=== PATIENT | female | born 1965 | race Caucasian/White ===

== ENCOUNTER 2022-07-10 13:49 | Observation (INO) | payer OTHER, SELFPAY ==
[2022-07-10] VITALS (14 sets, daily range): BP systolic 100–130; BP diastolic 74–104; PULSE 65–87; RESP 16; TEMP 35.6–36.7; O2SAT 90–99; BMI 35.7
--- NOTE | 2022-07-10 14:05 | CRLHL7_ITS ---
For Patients: As a result of the Century Cures Act, medical imaging exams and procedure reports are released immediately into your electronic medical record. You may view this report before your referring provider. If you have questions, please contact your health care provider. Indication: Injury and pain. Technique: Left ankle 2 views. Comparison: None. Findings: Mildly displaced fracture of the medial malleolus. Mildly displaced fracture of the posterior tibial malleolus. Moderately displaced fracture of the lateral malleolus the syndesmotic joint. There is soft tissue swelling. Unable to evaluate for widening of the ankle mortise on these limited two views. Impression: Left ankle trimalleolar fracture. Dictated by Casimiro Paredes MD @ 07/10/2022 3:01:40 PM (Electronically Signed)
[2022-07-10] MEDS: HYDROmorphone 0.5 mg/0.5 ml inj IVP ×3 (14:11→20:48)
--- NOTE | 2022-07-10 14:31 | ED_ITS ---
HPI - General Adult General Chief complaint: Extremity Pain/Injury, Lower Stated complaint: Left Ankle injury Time Seen by Provider: 07/10/22 14:05 Source: patient Mode of arrival: EMS Limitations: no limitations History of Present Illness HPI narrative: 56-year-old female coming in today after slipping on the ice and falling. Patient states that ?my ankle is broken.? She is complaining of left ankle pain. Denies any other injury. However, patient tells me that a week ago yesterday she fell and tore some tendons in the right foot. She tells me that she was told that she needed to be nonweightbearing but she has not been following that because she has needed to get around, she states that she babies the right foot quite a bit secondary to discomfort. Related Data Home Medications Medication Instructions Recorded Confirmed amitriptyline 50 mg tablet mg 07/10/22 bupropion HCl 150 mg tablet,12 hr mg PO 07/10/22 sustained-release conjugated estrogens 0.45 mg mg 07/10/22 tablet (Premarin) ipratropium 20 mcg-albuterol 100 inhalation 07/10/22 mcg/actuation mist for inhalation (Combivent Respimat) oxycodone 5 mg tablet mg 07/10/22 pantoprazole 40 mg tablet,delayed mg PO 07/10/22 release trazodone 100 mg tablet mg 07/10/22 Allergies Allergy/AdvReac Type Severity Reaction Status Date / Time prochlorperazine AdvReac Intermediate Agitated Verified 07/10/22 14:09 [From Compazine] bandaid Allergy Severe Anaphylaxis Uncoded 07/10/22 14:09 Review of Systems Status of ROS: Reports: 6 or more systems reviewed and unremarkable except as noted in History and below [facility] Social History Smoking Status: Heavy tobacco smoker What tobacco products do you use: cigarettes Years smoked: 20 Do you use any of these nicotine containing products: None Second hand tobacco smoke exposure: No How often do you have a drink containing alcohol: never AUDIT-C Alcohol total score: 0 Non-prescribed substance use: marijuana (any form) Exam Narrative: Exam Narrative: Well-nourished well-developed patient yelling in pain. Alert and oriented x3. Patient speaks loudly in full sentences without needing to catch her breath. HEENT: Normocephalic atraumatic. Pupils are equally round reactive to light. Extraocular muscles are intact. Conjunctivae are moist without any icterus noted. Moist mucous membranes. Neck is supple. She has no tenderness to palpation of the cervical spine.. Cardiovascular: Regular rate and rhythm without any murmurs. Lungs: Clear to auscultation bilaterally no wheezes rhonchi or rales are appr eciated. Extremities: Swelling of the left lower extremity. Normal DP and PT pulses. Patient has ecchymosis medially and swelling circumferentially around the ankle. She has small area of swelling over the right lateral foot. Normal DP and PT pulses. Skin: Well perfused without any obvious rashes. Const: Vital Signs, click to edit/add: Vital Signs - 24 hr 07/10/22 13:58 Temperature 96.0 F L Pulse Rate [Pulse Oximeter] 68 Respiratory Rate 16 Blood Pressure [Le ft Upper Arm] 130/96 H Pulse Oximetry 99 Oxygen Delivery Me thod Room Air Course Course Hospital Course: Patient received IV Dilaudid as well as Ativan which significantly helped her pain as well as her anxiety. X-ray read by me, showing a trimalleolar fracture. Orthopedics was consulted. They recommended outpatient surgery for this secondary to the amount of swelling present. Unfortunately patient is unable to ambulate given the pain she has on the right foot. She tells me that she feels very uncomfortable and unsafe going home at this time. I did speak to Dr. Ford will accept the patient for admission. Sugar-tong splint was placed in the ER. Florence was placed. Vital Signs Vital signs: Initial Vital Signs Temperature 96.0 F L 07/10/22 13:58 Temperature Source Temporal Artery Scan 07/10/22 13:58 Pulse Rate 68 07/10/22 13:58 Respiratory Rate 16 07/10/22 13:58 Blood Pressure 130/96 H 07/10/22 13:58 Blood Pressure Mean 107 07/10/22 13:58 Blood Pressure Position Supine 07/10/22 13:58 Pulse Oximetry 99 07/10/22 13:58 Oxygen Delivery Method 07/10/22 13:58 Vital Signs Temperature 96.0 F L 07/10/22 13:58 Pulse Rate 68 07/10/22 13:58 Respiratory Rate 16 07/10/22 13:58 Blood Pressure 130/96 H 07/10/22 13:58 Pulse Oximetry 99 07/10/22 13:58 Oxygen Delivery Method 07/10/22 13:58 Temperature 96.0 F L 07/10/22 13:58 Pulse Rate 68 07/10/22 13:58 Respiratory Rate 16 07/10/22 13:58 Blood Pressure 130/96 H 07/10/22 13:58 Pulse Oximetry 99 07/10/22 13:58 Oxygen Delivery Method 07/10/22 13:58 Medical Decision Making MDM Narrative Medical decision making narrative: 56-year-old female trimalleolar fracture. Unable to go home secondary to inability to ambulate and take care of herself. Patient will be admitted for further management. Imaging Data Ankle x-ray: Attestation: I have reviewed the pertinent imaging results. Radiologist's impression: Left ankle 2 views. Comparison: None. Findings: Mildly displaced fracture of the medial malleolus. Mildly displaced fracture of the posterior tibial malleolus. Moderately displaced fracture of the lateral malleolus the syndesmotic joint. There is soft tissue swelling. Unable to evaluate for widening of the ankle mortise on these limited two views. Impression: Left ankle trimalleolar fracture. Discharge Plan Discharge Clinical Impression: Closed trimalleolar fracture Patient Disposition: Admitted As Inpatient Condition: Stable Prescriptions: No Action bupropion HCl 150 mg tablet sustained-release 12 hr PO Label Comments: TAKE ONE TABLET BY MOUTH TWO TIMES A DAY amitriptyline 50 mg tablet Label Comments: TAKE 1 TABLET (50 MG) BY MOUTH AT BEDTIME. trazodone 100 mg tablet Label Comments: TAKE 2 TABLETS BY MOUTH AT BEDTIME pantoprazole 40 mg tablet,delayed release (DR/EC) PO Label Comments: TAKE 1 TABLET (40 MG) BY MOUTH ONCE DAILY BEFORE A MEAL. oxycodone 5 mg tablet Label Comments: TAKE ONE TABLET BY MOUTH EVERY 6 HOURS NEEDED FOR PAIN Premarin 0.45 mg tablet Label Comments: TAKE ONE TABLET BY MOUTH ONCE DAILY Combivent Respimat 20-100 mcg/actuation mist INHALATION Label Comments: INHALE 1 PUFF BY MOUTH EVERY 12 HOURS IF NEEDED FOR SHORTNESS OF BREATH. Follow Up/Referrals: Silva Alberto MD [Primary Care Provider] -
[2022-07-10] MEDS: LORazepam 2 MG/ML inj 0.5 MG IVP (15:11)
[2022-07-10 16:22] LABS: SARS PCR* Negative SARS-CoV-2 (Negative)
--- NOTE | 2022-07-10 17:40 | PM.IMHP1 ---
Hospitalist- H&P: HPI History of Present Illness Date Seen: 07/11/22 Chief complaint: Left Ankle injury Narrative: ADMISSION HISTORY AND PHYSICAL - HOSPITALIST Chief Complaint: A sprained my right ankle 2 weeks ago and now I fell hurt my left ankle HPI: 56-year-old Anne was walking 2 weeks ago when she tripped and sprained her right ankle. He went to the ED in [place]. She was diagnosed with a dorsal talus avulsion fracture from a high ankle sprain. He was given a postop shoe and Cristian wrap and told to limit her weight-bearing, ice and elevate. She found herself today needing to drive so she took her shoe off was attempting to going down a couple of stairs and she missed the step and rolled her left ankle. Knew immediately that this 1 was more injured than the right. She called for EMS. In the ER she was diagnosed with a left ankle fracture. Nondisplaced. Closed. Her pain was significant. Is unable to weightbear with a known sprain on her right. Hospital medicine team was asked to evaluate and admit for pain control and ambulation assessment with OT and PT. ER COURSE: She was given fentanyl in the transport, she received Dilaudid here. Plain films revealed Mildly displaced fracture of the medial malleolus. Mildly displaced fracture of the posterior tibial malleolus. Moderately displaced fracture of the lateral malleolus the syndesmotic joint. There is soft tissue swelling. Unable to evaluate for widening of the ankle mortise on these limited two views. Impression: Left ankle trimalleolar fracture CODE STATUS: FULL EMERGENCY CONTACT PLAN: Aamir, , . I've updated the PFSH, medications and allergies in the Expanse tabs. INVESTIGATIONS: LABS/MICRO/ECG/IMAGING Findings: Bones: Small calcification identified along the dorsal aspect of talus likely small avulsion fracture.. Joint spaces: Unremarkable. Ankle mortise is symmetric. Soft tissues: Soft tissue swelling surrounding the ankle joint., Especially along the anterior margin. Impression: Dorsal talus fracture REVIEW OF SYSTEMS: 12-point ROS completed with patient and negative unless otherwise stated in HPI or below. PHYSICAL EXAM: CONSTITUTIONAL: Conversive, good historian. A/O. Knows setting and context. VITAL SIGNS: see record. No concerns HEENT: Normocephalic, atraumatic. PERRL, EOMI, conjunctivae pink, no scleral icterus. Ears and nose externally normal. Pharynx normal. NECK: No JVD. No carotid bruit, no thyromegaly, no adenopathy. CHEST: Clear to auscultation bilaterally HEART: S1 and S2 normal. No harsh murmurs. Edema MUSCULOSKELETAL: Left ankle wrapped in splint, toes are warm and move freely. right ankle is without swelling, tender medially. NEURO: Cranial nerves intact. Grossly intact. No asymmetric findings. SKIN: No rashes, petechiae, concerning changes PSYCHIATRIC: Euthymic. ADMIT TO MEDSURG: FLOOR CARE DVT: Lovenox GI: PO intake Time spent: 70 minutes examining patient, conferring with family and patient, care staff, developing care plan [facility] Medical History (Updated 07/10/22 @ 19:57 by Usha Ford MD) Asthma Depression with anxiety GERD (gastroesophageal reflux disease) Hot flashes due to menopause Insomnia Liver cyst Malignant melanoma Migraine headache Nephrolithiasis Psoriatic arthritis Tobacco dependence Surgical History (Updated 07/10/22 @ 19:54 by Usha Ford MD) H/O lithotripsy H/O melanoma excision History of hysterectomy for benign disease History of laparoscopic cholecystectomy History of lymph node dissection of axilla Status post Fanny fundoplication Social History (Updated 07/10/22 @ 19:56 by Usha Ford MD) Narrative: Lives in [facility]. She has 2 grown children. , aamir. 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 Smokes cigarettes about a 3rd of a pack a day. No drinking. No drug use. Highest level of school completed/degree received: high school graduate Smoking Status: Current every day smoker What tobacco products do you use: cigarettes Years smoked: 20 Do you use any of these nicotine containing products: None Second hand tobacco smoke exposure: No How often do you have a drink containing alcohol: never AUDIT-C Alcohol total score: 0 Non-prescribed substance use: marijuana (any form) Caffeine: Yes service: No Meds Home Medications and Allergies Home Medications Medication Instructions Recorded Confirmed Type amitriptyline 50 mg tablet 50 mg PO HS 07/10/22 07/10/22 History betamethasone dipropionate 0.05 % 1 applic topical DAILY PRN 07/10/22 07/10/22 History lotion bupropion HCl 150 mg tablet,12 hr 150 mg PO BID 07/10/22 07/10/22 History sustained-release cholecalciferol (vitamin D3) 50 50 mcg PO DAILY 07/10/22 07/10/22 History mcg (2,000 unit) capsule conjugated estrogens 0.45 mg 0.45 mg PO HS 07/10/22 07/10/22 History tablet (Premarin) epinephrine 0.3 mg/0.3 mL 0.3 mg IM PRN PRN 07/10/22 07/10/22 History injection, auto-injector fluticasone propionate 50 1 spray intranasal BID 07/10/22 07/10/22 History mcg/actuation nasal spray,suspension ipratropium 20 mcg-albuterol 100 1 puff inhalation BID PRN 07/10/22 07/10/22 History mcg/actuation mist for inhalation (Combivent Respimat) metronidazole 0.75 % topical cream 1 applic topical DAILY PRN 07/10/22 07/10/22 History ondansetron 4 mg disintegrating 4 mg PO Q8H PRN 07/10/22 07/10/22 History tablet oxycodone 5 mg tablet 5 mg PO Q6H PRN 07/10/22 07/10/22 History pantoprazole 40 mg tablet,delayed 40 mg PO DAILY 07/10/22 07/10/22 History release sulfacetamide sodium-sulfur 8 %-4 1 applic topical DAILY 07/10/22 07/10/22 History % topical suspension trazodone 100 mg tablet 200 mg PO HS 07/10/22 07/10/22 History triamcinolone acetonide 0.1 % 1 applic topical BID PRN 07/10/22 07/10/22 History topical cream Allergies Allergy/AdvReac Type Severity Reaction Status Date / Time prochlorperazine AdvReac Intermediate Agitated Verified 07/10/22 14:09 [From Compazine] bandaid Allergy Severe Anaphylaxis Uncoded 07/10/22 14:09 Exam Const: Vital Signs, click to edit/add: Vital Signs - 24 hr 07/10/22 13:58 07/10/22 15:15 07/10/22 15:16 Temperature 96.0 F L Pulse Rate 65 79 Pulse Rate [Pulse Oximeter] 68 Pulse Rate [Right Pulse Oximeter] Respiratory Rate 16 Blood Pressure 130/85 Blood Pressure [Le ft Arm] Blood Pressure [Le ft Upper Arm] 130/96 H Pulse Oximetry 99 99 97 [facility] Room Air 07/10/22 15:33 07/10/22 15:35 07/10/22 15:45 Temperature Pulse Rate 71 75 73 Pulse Rate [Pulse Oximeter] Pulse Rate [Right Pulse Oximeter] Respiratory Rate Blood Pressure 117/76 Blood Pressure [Le ft Arm] Blood Pressure [Le ft Upper Arm] Pulse Oximetry 90 97 96 Oxygen Delivery Me od 07/10/22 16:00 07/10/22 16:02 07/10/22 16:15 Temperature Pulse Rate 71 75 86 Pulse Rate [Pulse Oximeter] Pulse Rate [Right Pulse Oximeter] Respiratory Rate Blood Pressure 121/104 H Blood Pressure [Le ft Arm] Blood Pressure [Le ft Upper Arm] Pulse Oximetry 99 96 [facility] 07/10/22 16:30 07/10/22 16:32 07/10/22 16:43 Temperature 98.1 F Pulse Rate 71 77 Pulse Rate [Pulse Oximeter] Pulse Rate [Right Pulse Oximeter] 87 Respiratory Rate 16 Blood Pressure 108/75 Blood Pressure [Le ft Arm] 117/81 Blood Pressure [Le ft Upper Arm] Pulse Oximetry 91 99 96 [facility] 07/10/22 16:43 Temperature Pulse Rate Pulse Rate [Pulse Oximeter] Pulse Rate [Right Pulse Oximeter] Respiratory Rate 16 Blood Pressure Blood Pressure [Le ft Arm] Blood Pressure [Le ft Upper Arm] Pulse Oximetry 96 [facility]xygen [facility] Assessment and Plan Assessment and plan (1) Closed trimalleolar fracture: Problem comment: Nonweightbearing. Ortho will consult 07/11. Surgery will likely be about a week out. Status: Acute (2) High ankle sprain of right lower extremity: Problem comment: Can weightbear as tolerated but needs to be in a boot with pain managed. In order to keep the left lower extremity nonweightbearing. Status: Acute (3) Mobility impaired: Problem comment: Given the right ankle injury 2 weeks ago and now the left ankle injury she will need walker/wheelchair in order to be mobile. Status: Acute (4) Tobacco dependence: Status: Acute (5) Migraine headache: Problem comment: Elavil nightly. Zofran p.r.n.. Previous Topamax dosing and triptans were ineffective. Status: Acute (6) GERD (gastroesophageal reflux disease): Problem comment: PPI Status: Acute (7) Insomnia: Status: Acute (8) Psoriatic arthritis: Problem comment: Chronic pain, no longer works. Not on social security disability. Not typically on narcotics. Status: Acute (9) Depression with anxiety: Problem comment: Wellbutrin Status: Acute
[2022-07-10] MEDS: OXYCODONE 5 MG TABLET PO (18:07)
[2022-07-10] MEDS: IBUPROFEN 400 MG TABLET PO (18:07)
[2022-07-10] MEDS: ONDANSETRON ODT 4 MG TAB PO (18:17)
--- NOTE | 2022-07-10 19:27 | PC.NURSE ---
up to floor at 1635, accompanied by spouse. Pt. is pleasant and cooperative. Alert and oriented x4. Pt. IV in right AC SL. right arm restricted. Pt.'s left ankle has a sugar tong splint, is non-weight bearing, ice 15min and 45min off. Elevated on pillows. pt. rated pain 7/10, PRN dilauded and oxy administered with some relief. PRN zofran administered for small amount of nausea. Pt. tolerating a reg. diet. Ortho will consult tomorrow morning.
[2022-07-10] MEDS: LORazepam 1 MG TABLET PO (19:40)
[2022-07-10] MEDS: ACETAMINOPHEN 325 MG TABLET PO (19:40)
[2022-07-10] MEDS: ENOXAPARIN 40 MG/0.4 ML INJ SUBCUT (20:47)
[2022-07-10] MEDS: buPROPion HCL SR 150 MG TAB PO (20:47)
[2022-07-10] MEDS: SODIUM CHLORIDE 0.9 % (FLUSH) 10 ML SYRINGE 5 ML IVF (20:48)
[2022-07-10] MEDS: TRAZODONE HCL 50 MG TABLET PO (20:48)
[2022-07-10] MEDS: MELATONIN 3 MG TABLET PO (20:49)
[2022-07-10] MEDS: FLUTICASONE PROPIONATE NASAL 1 SPRAY NOSTRIL-B (21:32)
[2022-07-10] MEDS: AMITRIPTYLINE 25 MG TABLET 50 MG PO (21:32)
[2022-07-11] VITALS (7 sets, daily range): BP systolic 96–122; BP diastolic 64–95; PULSE 73–89; RESP 16; TEMP 36.4–36.7; O2SAT 93–97
[2022-07-11] MEDS: OXYCODONE 5 MG TABLET PO ×3 (00:12→15:21)
[2022-07-11] MEDS: LORazepam 1 MG TABLET PO ×2 (00:13→20:10)
[2022-07-11] MEDS: ACETAMINOPHEN 325 MG TABLET PO ×2 (01:25→20:09)
[2022-07-11] MEDS: HYDROmorphone 0.5 mg/0.5 ml inj IVP ×6 (01:25→20:11)
[2022-07-11] MEDS: SODIUM CHLORIDE 0.9 % (FLUSH) 10 ML SYRINGE 5 ML IVF ×4 (01:25→20:12)
[2022-07-11] MEDS: OMEPRAZOLE 20 MG CAPSULE DR 40 MG PO (06:04)
--- NOTE | 2022-07-11 06:40 | PC.NURSE ---
: pt pleasant and cooperative. C/o pain -03/09, see emar. Pt states she struggles with sleep at home and takes 20mg melatonin a night along with either smoking marijuana or ?cooking? with marijuana, she gets ?the stuff from [place]?. Pt was restless at and continued to state that she ?just wants to sleep? and that she wants ?everything?. Prior to administering 0.5mg dilaudid pt requested Morphine, typewriter assembler stated that we can assess pain after medication was given, pt was able to fall asleep shortly after admin. Pt slept on and off throughout the night. Pt expressed anxiety r/t ortho consult and stated ?they can't send me home if I can't walk, I live in a split-level home?, typewriter assembler informed pt that there will be a safe d/c plan in place before d/c.?Ice to left ankle on and off throughout the shift, pt stated that the ice is offering some pain relief.
[2022-07-11 07:27] LABS: Chloride* 105 mmol/L (96-114)
[2022-07-11 07:28] LABS: Hematocrit 33.9 % (33.0-51.0); Hemoglobin* 11.1 gm/dL (12.0-16.0); Mean Corpuscular HGB Conc 33 gm/dL (32-36); Mean Corpuscular Hemoglobin 32 pg (26-34); Mean Corpuscular Volume 96 fL (80-100); Platelet Count* 381 K/uL (140-440); Potassium* 3.6 mmol/L (3.6-5.1); Red Blood Count 3.52 m/uL (4.00-5.20); Sodium* 137 mmol/L (135-149); White Blood Count* 5.91 K/uL (4.50-11.00)
[2022-07-11 07:30] LABS: Carbon Dioxide* 29 mmol/L (20-32); Creatinine* 0.7 mg/dL (0.5-1.5); Est. Creatinine Clearance* 70.98; Estimated Glomerular Filt Rate 101 ml/min
[2022-07-11 07:31] LABS: Blood Urea Nitrogen* 11 mg/dL (7-30); Calcium* 8.3 mg/dL (8.4-10.6); Glucose* 85 mg/dL (60-115)
[2022-07-11 07:33] LABS: Slide Review Reflex No
[2022-07-11] MEDS: IBUPROFEN 400 MG TABLET PO ×3 (08:40→17:50)
[2022-07-11] MEDS: FLUTICASONE PROPIONATE NASAL 1 SPRAY NOSTRIL-B ×2 (08:41→20:12)
[2022-07-11] MEDS: buPROPion HCL SR 150 MG TAB PO ×2 (08:41→20:13)
--- NOTE | 2022-07-11 09:33 | P.ORCN_ITS ---
History of Present Illness HPI Time Seen by Provider: 09:10 Date Seen: 07/11/22 Consult date: 07/11/22 Requesting physician: Miguel Howard Consult reason: fracture Chief complaint: Left Ankle injury Narrative: Anne is a pleasant 56 year-old female who fell and injured her left ankle yesterday resulting in a trimalleolar ankle fracture. Patient was placed in a short leg splint and admitted to [facility]. Today, she is resting comfortably in her bed and c/o diffuse left ankle pain that is well managed with scheduled narcotic medications, elevation and ice. Overall, she states her pain has improved from yesterday. Admits to trouble sleeping. Splint was not removed during our visit this morning. Patient also has a recent history of right ankle dorsal talus avulsion fracture and high ankle sprain (DOI: 2 weeks ago, [facility]). She was instructed to remain non-weightbearing on her right ankle x 6 weeks, however prior to this injury yesterday, Anne admits she struggles more with utilizing crutches than with weightbearing on her right foot/ankle. No right ankle swelling nor ecchymosis. Review of Systems Narrative: Admits: left ankle swelling, ecchymosis and trouble sleeping. Denies: chest pain, SOB, fever chills, right ankle swelling and ecchymosis. [facility] Medical History Asthma Depression with anxiety GERD (gastroesophageal reflux disease) Hot flashes due to menopause Insomnia Liver cyst Malignant melanoma Migraine headache Nephrolithiasis Psoriatic arthritis Tobacco dependence Surgical History H/O lithotripsy H/O melanoma excision History of hysterectomy for benign disease History of laparoscopic cholecystectomy History of lymph node dissection of axilla Status post Fanny fundoplication Social History Narrative: Lives in [facility]. She has 2 grown children. , aamir. 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 Since retired, medically secondary to chronic pain. Smokes cigarettes about a 3rd of a pack a day. No drinking. No drug use. Highest level of school completed/degree received: high school graduate Smoking Status: Current every day smoker What tobacco products do you use: cigarettes Years smoked: 20 Do you use any of these nicotine containing products: None Second hand tobacco smoke exposure: No How often do you have a drink containing alcohol: never AUDIT-C Alcohol total score: 0 Non-prescribed substance use: marijuana (any form) Caffeine: Yes service: No Meds Home Medications and Allergies Home Medications Medication Instructions Recorded Confirmed Type amitriptyline 50 mg tablet 50 mg PO HS 07/10/22 07/10/22 History betamethasone dipropionate 0.05 % 1 applic topical DAILY PRN 07/10/22 07/10/22 History lotion bupropion HCl 150 mg tablet,12 hr 150 mg PO BID 07/10/22 07/10/22 History sustained-release cholecalciferol (vitamin D3) 50 50 mcg PO DAILY 07/10/22 07/10/22 History mcg (2,000 unit) capsule conjugated estrogens 0.45 mg 0.45 mg PO HS 07/10/22 07/10/22 History tablet (Premarin) epinephrine 0.3 mg/0.3 mL 0.3 mg IM PRN PRN 07/10/22 07/10/22 History injection, auto-injector fluticasone propionate 50 1 spray intranasal BID 07/10/22 07/10/22 History mcg/actuation nasal spray,suspension ipratropium 20 mcg-albuterol 100 1 puff inhalation BID PRN 07/10/22 07/10/22 History mcg/actuation mist for inhalation (Combivent Respimat) metronidazole 0.75 % topical cream 1 applic topical DAILY PRN 07/10/22 07/10/22 History ondansetron 4 mg disintegrating 4 mg PO Q8H PRN 07/10/22 07/10/22 History tablet oxycodone 5 mg tablet 5 mg PO Q6H PRN 07/10/22 07/10/22 History pantoprazole 40 mg tablet,delayed 40 mg PO DAILY 07/10/22 07/10/22 History release sulfacetamide sodium-sulfur 8 %-4 1 applic topical DAILY 07/10/22 07/10/22 History % topical suspension trazodone 100 mg tablet 200 mg PO HS 07/10/22 07/10/22 History triamcinolone acetonide 0.1 % 1 applic topical BID PRN 07/10/22 07/10/22 History topical cream Allergies Allergy/AdvReac Type Severity Reaction Status Date / Time prochlorperazine AdvReac Intermediate Agitated Verified 07/10/22 14:09 [From Compazine] bandaid Allergy Severe Anaphylaxis Uncoded 07/10/22 14:09 Ortho Exam Narrative Exam Narrative: EXAMINATION: Patient is alert and oriented x3. No acute distress and converses with non- labored breathing. Presents in short leg splint that was not removed for this visit, therefore exam is limited. Left ankle exam: Swelling present in digits. Able to wiggle toes appropriately. ROM and strength testing obviously deferred. Unable to assess DP and PT pulses, but pink, warm digits with brisk capillary refill. Sensation present in digits. Const Vital Signs, click to edit/add: Vital Signs - 24 hr 07/10/22 13:58 07/10/22 15:15 07/10/22 15:16 Temperature 96.0 F L Pulse Rate 65 79 Pulse Rate [Pulse Oximeter] 68 Pulse Rate [Right Pulse Oximeter] Respiratory Rate 16 Blood Pressure 130/85 Blood Pressure [Left Arm] Blood Pressure [Left Upper Arm] 130/96 H Pulse Oximetry 99 99 97 Oxygen Delivery Method Room Air Room Air 07/10/22 15:33 07/10/22 15:35 07/10/22 15:45 Temperature Pulse Rate 71 75 73 Pulse Rate [Pulse Oximeter] Pulse Rate [Right Pulse Oximeter] Respiratory Rate Blood Pressure 117/76 Blood Pressure [Left Arm] Blood Pressure [Left Upper Arm] Pulse Oximetry 90 97 96 Oxygen Delivery Method 07/10/22 16:00 07/10/22 16:02 07/10/22 16:15 Temperature Pulse Rate 71 75 86 Pulse Rate [Pulse Oximeter] Pulse Rate [Right Pulse Oximeter] Respiratory Rate Blood Pressure 121/104 H Blood Pressure [Left Arm] Blood Pressure [Left Upper Arm] Pulse Oximetry 99 96 Oxygen Delivery Method 07/10/22 16:30 07/10/22 16:32 07/10/22 16:43 Temperature 98.1 F Pulse Rate 71 77 Pulse Rate [Pulse Oximeter] Pulse Rate [Right Pulse Oximeter] 87 Respiratory Rate 16 Blood Pressure 108/75 Blood Pressure [Left Arm] 117/81 Blood Pressure [Left Upper Arm] Pulse Oximetry 91 99 96 Oxygen Delivery Method Room Air 07/10/22 16:43 07/10/22 19:00 07/10/22 21:38 Temperature Pulse Rate Pulse Rate [Pulse Oximeter] Pulse Rate [Right Pulse Oximeter] 75 Respiratory Rate 16 16 Blood Pressure Blood Pressure [Left Arm] 100/74 Blood Pressure [Left Upper Arm] Pulse Oximetry 96 99 94 Oxygen Delivery Method Room Air Room Air 07/10/22 21:38 07/10/22 21:38 07/11/22 03:00 Temperature 97.8 F 97.6 F Pulse Rate Pulse Rate [Pulse Oximeter] Pulse Rate [Right Pulse Oximeter] 66 66 73 Respiratory Rate 16 16 16 Blood Pressure Blood Pressure [Left Arm] 100/80 107/70 Blood Pressure [Left Upper Arm] Pulse Oximetry 94 94 Oxygen Delivery Method Room Air Room Air Results Labs Labs: Laboratory Results - last 48 hr 07/10/22 07/11/22 07/11/22 15:35 06:22 06:22 WBC 5.91 RBC 3.52 L Hgb 11.1 L Hct 33.9 MCV 96 MCH 32 MCHC 33 Plt Count 381 Sodium 137 Potassium 3.6 Chloride 105 Carbon Dioxide 29 BUN 11 Creatinine 0.7 Estimated Creat Clear 70.98 Estimated GFR 101 Glucose 85 Calcium 8.3 L TSH SARS-CoV-2 (PCR) Negative SARS-CoV-2 07/11/22 06:22 WBC RBC Hgb Hct MCV MCH MCHC Plt Count Sodium Potassium Chloride Carbon Dioxide BUN Creatinine Estimated Creat Clear Estimated GFR Glucose Calcium TSH 2.740 SARS-CoV-2 (PCR) Diagnostic results Ankle/Foot x-ray: image reviewed (2-view left ankle images were reviewed from [place] [facility] dated 07/10/22. These show: an acute, minimally displaced trimalleolar fracture. ) Assessment and Plan Assessment and plan (1) Closed trimalleolar fracture: Problem comment: DOI: 07/10/22 Status: Acute Assessment and Plan: - Images were reviewed with Anne. We discussed her trimalleolar ankle fracture and syndesmosis injury. - Outpatient surgical intervention is recommended approximately 7-10 days from DOI to allow swelling reduction. Surgery would be: left ankle ORIF with IM nail and cannulated screws and also syndesmosis repair. - PT and OT consults today. Following these consults, the Hospitalist may decide if Anne is capable to discharge to home later today or if a short-term rehab stay is necessary. - Patient will follow-up with Dr. Higgins next week. - In the meantime, she will remain non-weightbearing left lower extremity. - For pain management, recommend rest, ice, elevation, acetaminophen and oxycodone PRN. I stressed the importance of elevation over the next week. - Phone Orthopedics with any questions or concerns. Total time spent: Total time spent is greater than 50% in coordination of care (as documented) at patient's floor/unit and/or counseling patient: (2) High ankle sprain of right lower extremity: Problem comment: 2 weeks s/p right dorsal talus avulsion fracture with a high ankle sprain. Status: Acute Assessment and Plan: - Patient may gradually advance weightbearing status on her right lower extremity as tolerated. Recommend a CAM boot and a walker to assist with stability. Total time spent: Total time spent is greater than 50% in coordination of care (as documented) at patient's floor/unit and/or counseling patient: (3) Mobility impaired: Status: Acute Total time spent: Total time spent is greater than 50% in coordination of care (as documented) at patient's floor/unit and/or counseling patient: (4) Tobacco dependence: Status: Acute Total time spent: Total time spent is greater than 50% in coordination of care (as documented) at patient's floor/unit and/or counseling patient: (5) Migraine headache: Status: Acute Total time spent: Total time spent is greater than 50% in coordination of care (as documented) at patient's floor/unit and/or counseling patient: (6) GERD (gastroesophageal reflux disease): Status: Acute Total time spent: Total time spent is greater than 50% in coordination of care (as documented) at patient's floor/unit and/or counseling patient: (7) Insomnia: Status: Acute Total time spent: Total time spent is greater than 50% in coordination of care (as documented) at patient's floor/unit and/or counseling patient: (8) Psoriatic arthritis: Status: Acute Total time spent: Total time spent is greater than 50% in coordination of care (as documented) at patient's floor/unit and/or counseling patient: (9) Depression with anxiety: Status: Acute Total time spent: Total time spent is greater than 50% in coordination of care (as documented) at patient's floor/unit and/or counseling patient:
--- NOTE | 2022-07-11 12:40 | PM.IMPN1 ---
Progress Note: A&P Assessment and plan (1) Closed trimalleolar fracture: Problem details: DOI: 07/10/22 Status: Acute Assessment and Plan: left ankle (2) Mobility impaired: Status: Acute (3) High ankle sprain of right lower extremity: Problem details: 2 weeks s/p right dorsal talus avulsion fracture with a high ankle sprain. Status: Acute (4) Depression with anxiety: Status: Acute (5) GERD (gastroesophageal reflux disease): Problem details: PPI Status: Acute Plan Plan Surgery next week; PT/OT evaluation possible DC tomorrow home if able to ambulate or will need snf referral with plan for readmission for surgical intervention Ortho Recs Outpatient surgical intervention is recommended approximately 7-10 days from DOI to allow swelling reduction. Surgery would be: left ankle ORIF with IM nail and cannulated screws and also syndesmosis repair. - PT and OT consults today. - Patient will follow-up with Dr. Higgins next week. - In the meantime, she will remain non-weightbearing left lower extremity. Subjective Date Seen: 07/11/22 Interval history: patient evaluated by orthopaedic team unable to get surgery till next week Given boot Patient does not feel she can dc today; unable to ambulate; no help at home today; but tomorrow her will be able to help her Exam Narrative: Exam Narrative: Gen: no acute distress HEENT: NCAT EOMI mmm CV: RRR normal s1 s2 Lungs: CTAB Abd: Soft,nt, nd Neuro: Alert, oriented, CN grossly intact; nonfocal screening?exam Psych: appropriate affect MSK: age appropriate muscle mass; left lower extremity splinted in case Skin; Warm, dry no rash on face : [place] in place Const: Vital Signs, click to edit/add: Vital Signs - 24 hr 07/10/22 13:58 07/10/22 15:15 07/10/22 15:16 Temperature 96.0 F L Pulse Rate 65 79 Pulse Rate [Pulse Oximeter] 68 Pulse Rate [Right Pulse Oximeter] Respiratory Rate 16 Blood Pressure 130/85 Blood Pressure [Le ft Arm] Blood Pressure [Le ft Upper Arm] 130/96 H Pulse Oximetry 99 99 97 Oxygen Delivery Me thod Room Air Room Air 07/10/22 15:33 07/10/22 15:35 07/10/22 15:45 Temperature Pulse Rate 71 75 73 Pulse Rate [Pulse Oximeter] Pulse Rate [Right Pulse Oximeter] Respiratory Rate Blood Pressure 117/76 Blood Pressure [Le ft Arm] Blood Pressure [Le ft Upper Arm] Pulse Oximetry 90 97 96 Oxygen Delivery Me thod 07/10/22 16:00 07/10/22 16:02 07/10/22 16:15 Temperature Pulse Rate 71 75 86 Pulse Rate [Pulse Oximeter] Pulse Rate [Right Pulse Oximeter] Respiratory Rate Blood Pressure 121/104 H Blood Pressure [Le ft Arm] Blood Pressure [Le ft Upper Arm] Pulse Oximetry 99 96 Oxygen Delivery Me thod 07/10/22 16:30 07/10/22 16:32 07/10/22 16:43 Temperature 98.1 F Pulse Rate 71 77 Pulse Rate [Pulse Oximeter] Pulse Rate [Right Pulse Oximeter] 87 Respiratory Rate 16 Blood Pressure 108/75 Blood Pressure [Le ft Arm] 117/81 Blood Pressure [Le ft Upper Arm] Pulse Oximetry 91 99 96 Oxygen Delivery [facility] Room Air 07/10/22 16:43 07/10/22 19:00 07/10/22 21:38 Temperature Pulse Rate Pulse Rate [Pulse Oximeter] Pulse Rate [Right Pulse Oximeter] 75 Respiratory Rate 16 16 Blood Pressure Blood Pressure [Le ft Arm] 100/74 Blood Pressure [Le ft Upper Arm] Pulse Oximetry 96 99 94 Oxygen Delivery [facility] Room Air Room Air 07/10/22 21:38 07/10/22 21:38 07/11/22 03:00 Temperature 97.8 F 97.6 F Pulse Rate Pulse Rate [Pulse Oximeter] Pulse Rate [Right Pulse Oximeter] 66 66 73 Respiratory Rate 16 16 16 Blood Pressure Blood Pressure [Le ft Arm] 100/80 107/70 Blood Pressure [Le ft Upper Arm] Pulse Oximetry 94 94 Oxygen Delivery Me od Room Air Room Air 07/11/22 07:00 07/11/22 07:00 07/11/22 07:00 Temperature 98.0 F Pulse Rate Pulse Rate [Pulse Oximeter] Pulse Rate [Right Pulse Oximeter] 84 84 Respiratory Rate 16 16 Blood Pressure Blood Pressure [Le ft Arm] 98/72 Blood Pressure [Le ft Upper Arm] Pulse Oximetry 95 95 [facility] 07/11/22 11:00 Temperature 98.1 F Pulse Rate Pulse Rate [Pulse Oximeter] Pulse Rate [Right Pulse Oximeter] 76 Respiratory Rate 16 Blood Pressure Blood Pressure [Le ft Arm] 96/64 Blood Pressure [Le ft Upper Arm] Pulse Oximetry 94 Oxygen Delivery Me thod Room Air Labs Labs: Laboratory Results - last 24 hr 07/10/22 07/11/22 07/11/22 15:35 06:22 06:22 WBC 5.91 RBC 3.52 L Hgb 11.1 L Hct 33.9 MCV 96 MCH 32 MCHC 33 Plt Count 381 Sodium 137 Potassium 3.6 Chloride 105 Carbon Dioxide 29 BUN 11 Creatinine 0.7 Estimated Creat Clear 70.98 Estimated GFR 101 Glucose 85 Calcium 8.3 L TSH SARS-CoV-2 (PCR) Negative SARS-CoV-2 07/11/22 06:22 WBC RBC Hgb Hct MCV MCH MCHC Plt Count Sodium Potassium Chloride Carbon Dioxide BUN Creatinine Estimated Creat Clear Estimated GFR Glucose Calcium TSH 2.740 SARS-CoV-2 (PCR)
--- NOTE | 2022-07-11 19:42 | PC.NURSE ---
End of shift: Pt. is pleasant and cooperative. Alert and oriented x4. Pt. IV in left wrist, SL. right arm restricted. Pt.'s left ankle has a sugar tong splint, is non-weight bearing, ice 15min and 45min off. Elevated on pillows. pt. rated pain 7/10, PRN dilauded and oxy administered with some relief. Pt. denies Nausea. Pt. tolerating a reg. diet. Plan is to do surgery in a week from day of ankle fracture.
[2022-07-11] MEDS: DOCUSATE SODIUM 100 MG CAPSULE PO (20:09)
[2022-07-11] MEDS: TRAZODONE HCL 50 MG TABLET PO (20:10)
[2022-07-11] MEDS: AMITRIPTYLINE 25 MG TABLET 50 MG PO (20:10)
[2022-07-11] MEDS: MELATONIN 3 MG TABLET PO (20:10)
[2022-07-11] MEDS: ENOXAPARIN 40 MG/0.4 ML INJ SUBCUT (20:12)
[2022-07-12] MEDS: OXYCODONE 5 MG TABLET PO ×5 (00:12→19:11)
[2022-07-12] MEDS: HYDROmorphone 0.5 mg/0.5 ml inj IVP ×2 (01:14→08:33)
[2022-07-12 03:00] VITALS: RESP 16
[2022-07-12] MEDS: ACETAMINOPHEN 325 MG TABLET PO ×3 (04:26→21:43)
[2022-07-12] MEDS: OMEPRAZOLE 20 MG CAPSULE DR 40 MG PO (06:13)
--- NOTE | 2022-07-12 06:28 | PC.NURSE ---
-: pleasant and cooperative. Rates pain 4-6/10 in her left ankle, see eMAR. Informed patient that paint mgmt should be with oral medication and to limit IV dilaudid with potential d/c 07/12. VSS. Pt able to sleep much of the night. Ice on and off left ankle throughout shift. LLE elevated.
[2022-07-12 07:00] VITALS: BP 102/84; PULSE 65; RESP 16; TEMP 36.7; O2SAT 96
[2022-07-12 07:09] LABS: Chloride* 107 mmol/L (96-114); Sodium* 140 mmol/L (135-149)
[2022-07-12 07:10] LABS: Potassium* 3.5 mmol/L (3.6-5.1)
[2022-07-12 07:12] LABS: Carbon Dioxide* 30 mmol/L (20-32); Creatinine* 0.7 mg/dL (0.5-1.5); Est. Creatinine Clearance* 70.98; Estimated Glomerular Filt Rate 101 ml/min
[2022-07-12 07:13] LABS: Basophils Percent Auto 0.5 % (0.0-3.0); Blood Urea Nitrogen* 11 mg/dL (7-30); Calcium* 8.1 mg/dL (8.4-10.6); Eosinophils Percent Auto 6.2 % (0.0-7.0); Glucose* 86 mg/dL (60-115); Hematocrit 33.2 % (33.0-51.0); Hemoglobin* 10.7 gm/dL (12.0-16.0); Lymphocytes Percent Auto 40.5 % (20-44); Mean Corpuscular HGB Conc 32 gm/dL (32-36); Mean Corpuscular Hemoglobin 31 pg (26-34); Mean Corpuscular Volume 96 fL (80-100); Monocytes Percent Auto 10.9 % (0.0-11.0); Neutrophils Percent Auto 41.9 % (42.0-72.0); Platelet Count* 364 K/uL (140-440); RDW Coefficient of Variation % 13.1 % (11.5-15.5); Red Blood Count 3.45 m/uL (4.00-5.20); White Blood Count* 4.22 K/uL (4.50-11.00)
[2022-07-12 07:56] LABS: Slide Review Reflex No
[2022-07-12] MEDS: IBUPROFEN 400 MG TABLET PO (08:33)
[2022-07-12] MEDS: buPROPion HCL SR 150 MG TAB PO ×2 (08:34→21:09)
[2022-07-12] MEDS: FLUTICASONE PROPIONATE NASAL 1 SPRAY NOSTRIL-B ×2 (08:34→21:09)
[2022-07-12] MEDS: SODIUM CHLORIDE 0.9 % (FLUSH) 10 ML SYRINGE 5 ML IVF ×2 (08:34→21:49)
[2022-07-12] MEDS: DOCUSATE SODIUM 100 MG CAPSULE PO ×2 (10:20→21:48)
[2022-07-12 11:00] VITALS: BP 113/82; PULSE 77; RESP 16; TEMP 36.7; O2SAT 96
[2022-07-12] MEDS: diphenhydrAMINE 25 MG CAPSULE PO (11:16)
[2022-07-12] MEDS: KETOROLAC 10 MG TABLET PO ×2 (11:16→21:44)
[2022-07-12] MEDS: ONDANSETRON ODT 4 MG TAB PO (11:18)
--- NOTE | 2022-07-12 11:22 | P.IMPN_ITS ---
Progress Note: A&P Assessment and plan (1) Closed trimalleolar fracture: Problem details: DOI: 07/10/22 Status: Acute Assessment and Plan: Plan Surgery next week; PT/OT evaluation anticipate she will need snf referral with plan for readmission for surgical intervention Ortho Recs Outpatient surgical intervention is recommended approximately 7-10 days from DOI to allow swelling reduction. Surgery would be: left ankle ORIF with IM nail and cannulated screws and also syndesmosis repair. - PT and OT consults today. - Patient will follow-up with Dr. Higgins next week. - In the meantime, she will remain non-weightbearing left lower extremity. (2) Mobility impaired: Status: Acute (3) High ankle sprain of right lower extremity: Problem details: 2 weeks s/p right dorsal talus avulsion fracture with a high ankle sprain. Status: Acute (4) Depression with anxiety: Status: Acute (5) Migraine headache: Status: Acute Assessment and Plan: tylenol (6) GERD (gastroesophageal reflux disease): Problem details: PPI Status: Acute Plan Plan for today: DC IV narcotics; DC jensen catheter, Increase PO oxycodone frequency, add flexeril; continue therapy evaluation; SW/CM consult tomorrow for possible short term rehab; patient has brother and at home. Brother able to assist with ADLs. Patient has been fairly immobile while in hospital; working on getting her out of bed. Subjective Date Seen: 07/12/22 Interval history: patient with minimal ambulation still requiring PO and IV narcotics continues to have difficulty with ambulation does not think she can discharge today Exam Narrative: Exam Narrative: Gen: no acute distress HEENT: NCAT EOMI mmm CV: RRR normal s1 s2 Lungs: CTAB Abd: Soft,nt, nd Neuro: Alert, oriented, CN grossly intact; nonfocal screening?exam Psych: appropriate affect MSK: age appropriate muscle mass; left lower extremity in cast; FROm right ankle Skin; Warm, dry no rash on face Const: Vital Signs, click to edit/add: Vital Signs - 24 hr 07/11/22 15:00 07/11/22 15:00 07/11/22 15:00 Temperature 98.0 F Pulse Rate [Right Pulse Oximeter] 89 89 Respiratory Rate 16 16 Blood Pressure [Le ft Arm] 111/95 H Pulse Oximetry 94 97 Oxygen Delivery Me thod Room Air 07/11/22 19:00 07/11/22 22:24 07/11/22 22:24 Temperature 98.0 F Pulse Rate [Right Pulse Oximeter] 88 88 Respiratory Rate 16 16 Blood Pressure [Le ft Arm] 122/79 Pulse Oximetry 95 95 Oxygen Delivery Me thod Room Air 07/11/22 23:00 07/12/22 03:00 Temperature Pulse Rate [Right Pulse Oximeter] 75 Respiratory Rate 16 16 Blood Pressure [Le ft Arm] 99/71 Pulse Oximetry 93 Oxygen Delivery Me thod Room Air Labs Labs: Laboratory Results - last 24 hr 07/12/22 07/12/22 06:06 06:06 WBC 4.22 L RBC 3.45 L Hgb 10.7 L Hct 33.2 MCV 96 MCH 31 MCHC 32 RDW Coeff of Kathryn 13.1 Plt Count 364 Neut % (Auto) 41.9 L Lymph % (Auto) 40.5 [facility] [facility] % (Auto) 10.9 Eos % (Auto) 6.2 Baso % (Auto) 0.5 Neut # (Auto) 1.80 Lymph # (Auto) 1.70 [facility] # (Auto) 0.50 Eos # (Auto) 0.30 Baso # (Auto) 0.00 Sodium 140 Potassium 3.5 L Chloride 107 Carbon Dioxide 30 BUN 11 Creatinine 0.7 Estimated Creat Clear 70.98 Estimated GFR 101 Glucose 86 Calcium 8.1 L
[2022-07-12] MEDS: CYCLOBENZAPRINE HCL 10 MG TABLET PO (13:40)
[2022-07-12 15:00] VITALS: BP 113/60; PULSE 83; RESP 16; TEMP 36.6; O2SAT 94
[2022-07-12 19:00] VITALS: BP 123/96; PULSE 88; RESP 16; TEMP 36.8; O2SAT 96
[2022-07-12] MEDS: LORazepam 1 MG TABLET PO (19:11)
[2022-07-12] MEDS: ENOXAPARIN 40 MG/0.4 ML INJ SUBCUT (21:07)
[2022-07-12] MEDS: AMITRIPTYLINE 25 MG TABLET 50 MG PO (21:08)
[2022-07-12] MEDS: TRAZODONE HCL 50 MG TABLET PO (21:08)
[2022-07-12] MEDS: MELATONIN 3 MG TABLET PO (21:44)
--- NOTE | 2022-07-12 22:13 | PC.NURSE ---
Shift note:Pt is doing well with A1 to bedside commode. Pain have been between 5 and 9. Tolerated regular diet very well without N/V.
[2022-07-12 22:57] VITALS: O2SAT 96
[2022-07-13] MEDS: OXYCODONE 5 MG TABLET PO ×3 (00:43→11:50)
[2022-07-13] MEDS: CYCLOBENZAPRINE HCL 10 MG TABLET PO (00:43)
[2022-07-13 00:53] VITALS: BP 133/73; PULSE 91; RESP 16; TEMP 36.7; O2SAT 96
[2022-07-13 00:54] VITALS: PULSE 91; RESP 16
[2022-07-13 06:00] VITALS: BP 122/73; PULSE 86; RESP 18; TEMP 36.6; O2SAT 96
[2022-07-13] MEDS: OMEPRAZOLE 20 MG CAPSULE DR 40 MG PO (06:17)
[2022-07-13 07:00] VITALS: BP 122/76; PULSE 74; RESP 18; TEMP 36.6; O2SAT 96
[2022-07-13] MEDS: ACETAMINOPHEN 325 MG TABLET PO (07:27)
[2022-07-13] MEDS: SODIUM CHLORIDE 0.9 % (FLUSH) 10 ML SYRINGE 5 ML IVF (09:31)
[2022-07-13] MEDS: buPROPion HCL SR 150 MG TAB PO (09:31)
[2022-07-13] MEDS: FLUTICASONE PROPIONATE NASAL 1 SPRAY NOSTRIL-B (09:31)
--- NOTE | 2022-07-13 11:35 | P.DS_ITS ---
DS: Providers Provider Date Seen: 07/13/22 Date of admission: 07/10/22 16:31 Primary care physician: Silva Alberto MD Admitting Clinician: Usha Ford MD Consults: PT, OT, and Orthopedic Surgery Attending Physician on discharge: Usha Ford MD Date of Discharge: 07/13/22 DS: Diagnosis Discharge Diagnosis (1) Closed trimalleolar fracture: Status: Acute Problem details: - DOI: 07/10/22 (LEFT) - Splint placed in ED on admission, seen by Ortho with plan for surgical inter vention next week (2) Mobility impaired: Status: Acute (3) High ankle sprain of right lower extremity: Status: Acute Problem details: - 2 weeks s/p right dorsal talus avulsion fracture with a high ankle sprain. (4) Depression with anxiety: Status: Acute Problem details: - stable, continued home medications during stay (5) GERD (gastroesophageal reflux disease): Status: Acute Problem details: - stable, on PPI (6) Postmenopausal: Status: Acute Problem details: - on HRT; will hold on discharge given nonambulatory status and upcoming surgery DS: Summary Hospital Course Hospital Course: Anne is a very pleasant 56-year-old female who was admitted to the hospital after a fall on ice 07/10/22. She unfortunately was noted to have a left trimalleolar fracture; also recently sustained a high right ankle sprain and has been using a cam walker on the right. Given her nonambulatory status, she was minute to the hospital for therapy and pain control. ' She was seen by Orthopedic surgery, PT, and OT. She will have surgical intervention next week with our our Orthopedic Surgery team locally. Comorbidities remained stable (see above) and patient did not require additional medical management throughout stay. Prior to discharge, SNF stay offered; patient declined and will be discharging home with and brother on 07/13. Status at Discharge Functional status at discharge: wheelchair bound Time Spent with Patient Time attestation: Total time spent providing and/or coordinating discharge services: Time spent: Greater than 30 minutes Specific discharge activities: Multidisciplinary care coordination prior to discharge, medication management Exam Narrative: Exam Narrative: Patient is sitting comfortably in bedside chair, nontoxic in appearance Pulse palpates as regular rate and rhythm She is breathing comfortably without tachypnea or audible wheezing She is wearing a cam walker on her right lower extremity, splint on her left lower extremity She is able to move her left toes and has normal capillary refill Const: Vital Signs, click to edit/add: Vital Signs - 24 hr 07/12/22 15:00 07/12/22 15:00 07/12/22 19:00 Temperature 97.9 F 98.3 F Pulse Rate [Right Pulse Oximeter] 83 88 Respiratory Rate 16 16 Blood Pressure [Le ft Arm] 113/60 123/96 H Pulse Oximetry 94 94 96 Oxygen Delivery Me thod Room Air Room Air 07/12/22 22:57 07/13/22 00:53 07/13/22 00:54 Temperature 98.1 F Pulse Rate [Right Pulse Oximeter] 91 91 Respiratory Rate 16 16 Blood Pressure [Le ft Arm] 133/73 Pulse Oximetry 96 96 Oxygen Delivery Me thod Room Air 07/13/22 06:00 07/13/22 07:00 07/13/22 07:00 Temperature 98 F Pulse Rate [Right Pulse Oximeter] 86 74 Respiratory Rate 18 18 Blood Pressure [Le ft Arm] 122/73 Pulse Oximetry 96 96 Oxygen Delivery Me thod Room Air 07/13/22 07:00 Temperature 98 F Pulse Rate [Right Pulse Oximeter] 74 Respiratory Rate 18 Blood Pressure [Le ft Arm] 122/76 Pulse Oximetry 96 Oxygen Delivery Me thod Room Air Discharge Plan Discharge Disposition: Home, Self-Care Date of Admission: 07/10/22 16:31 Consulting Providers: Cecilia Regan Primary Care Provider: Silva Alberto Condition: Stable Anticipated Discharge Date/Time: 07/13/22 15:00 Discharge Medications: New cyclobenzaprine 10 mg Tablet 10 mg PO TID PRNQty: 30 0RF Rx Instructions: as needed (muscle relaxer) docusate sodium 100 mg Capsule 100 mg PO BID PRN (Reason: Constipation) Qty: 60 0RF Rx Instructions: take while you're on Oxycodone to minimize risk of constipation oxycodone 5 mg Tablet 5 mg PO Q4H PRNQty: 20 0RF hydroxyzine pamoate [Vistaril] 25 mg capsule 25 mg PO Q6-8H PRNQty: 30 0RF Rx Instructions: 1-2 capsules Q6H prn pain acetaminophen [Tylenol Extra Strength] 500 mg tablet 1,000 mg PO Q8H Qty: 90 0RF Continued bupropion HCl 150 mg tablet sustained-release 12 hr 150 mg PO BID Label Comments: TAKE ONE TABLET BY MOUTH TWO TIMES A DAY amitriptyline 50 mg tablet 50 mg PO HS Label Comments: TAKE 1 TABLET (50 MG) BY MOUTH AT BEDTIME. trazodone 100 mg tablet 200 mg PO HS Label Comments: TAKE 2 TABLETS BY MOUTH AT BEDTIME pantoprazole 40 mg tablet,delayed release (DR/EC) 40 mg PO DAILY Label Comments: TAKE 1 TABLET (40 MG) BY MOUTH ONCE DAILY BEFORE A MEAL. Combivent Respimat 20-100 mcg/actuation mist 1 puff INHALATION BID PRN Label Comments: INHALE 1 PUFF BY MOUTH EVERY 12 HOURS IF NEEDED FOR SHORTNESS OF BREATH. fluticasone propionate 50 mcg/actuation spray,suspension 1 spray INTRANASAL BID Label Comments: USE 1 SPRAY TO BOTH NOSTRILS TWO TIMES A DAY sulfacetamide sodium-sulfur 8-4 % suspension 1 applic TOPICAL DAILY Label Comments: WASH FACE ONCE DAILY triamcinolone acetonide 0.1 % cream 1 applic TOPICAL BID PRN Label Comments: APPLY TO THE AFFECTED AREA TWO TIMES A DAY ondansetron 4 mg tablet,disintegrating 4 mg PO Q8H PRN Label Comments: PLACE 1 TABLET ON THE TONGUE EVERY 8 HOURS IF NEEDED FOR NAUSEA/VOMITING. epinephrine 0.3 mg/0.3 mL auto-injector 0.3 mg IM PRN PRN Label Comments: INJECT 0.3MG (0.3ML) INTRAMUSCULARLY NEEDED FOR ALLERGIC REACTION cholecalciferol (vitamin D3) 50 mcg (2,000 unit) capsule 50 mcg PO DAILY betamethasone dipropionate 0.05 % lotion 1 applic TOPICAL DAILY PRN Label Comments: APPLY TO SCALP DAILY FOR APPLY TO 2 WEEKS AT A TIME REPEAT NEEDED FOR FLARES metronidazole 0.75 % cream 1 applic TOPICAL DAILY PRN Label Comments: APPLY TO AFFECTED AREA ON FACE ONCE DAILY Held Premarin 0.45 mg tablet 0.45 mg PO HS Hold Instructions: Resume on 08/31/22. Hold Premarin until 6 weeks postop from ankle surgery (can talk with Dr. Milan about restarting sooner, but it increases the risk of blood clots with your injury and surgery). Label Comments: TAKE ONE TABLET BY MOUTH ONCE DAILY Discontinued oxycodone 5 mg tablet 5 mg PO Q6H PRN Label Comments: TAKE ONE TABLET BY MOUTH EVERY 6 HOURS NEEDED FOR PAIN Discharge Orders: Discharge Order (Routine); Ordered 07/13/22 Ordered By: Lizeth Manjarrez Patient Education: Acetaminophen (By mouth), Cyclobenzaprine (By mouth), Laxative, Stool Softeners (By mouth), Hydroxyzine (By mouth), Oxycodone, Rapid Release (By mouth), ORIF (DC) Additional Instructions: Pain management: SCHEDULE Tylenol 1000mg every 8 hours NEEDED: Oxycodone (every 4 hours), Cyclobenzaprine (muscle relaxer every 8 hours), Vistaril (augmenting pain medication every 6-8 hours) HOLD your Premarin (can increase risk of blood clots with your injury and upcoming surgery) - restart this 6 weeks postop (or per Dr. Milan) Activity Level: No Weight Bearing Discharge Diet: Regular Follow Up Appointments: Silva Alberto MD [Primary Care Provider] - (call and make an appt to see Dr. Alberto 1-2 weeks after surgery - see Ortho as scheduled) [facility] Info Instructions
--- NOTE | 2022-07-13 12:27 | PC.NURSE ---
Discharge: Pt. is pleasant and cooperative. Alert and oriented x4. Pt. IV in left wrist removed intact. Pt.'s left ankle has a sugar tong splint. pt. rated pain 7/10, PRN oxy administered with some relief. Pt. denies Nausea. Pt. tolerating a reg. diet. Plan is to do surgery in a week from day of ankle fracture. Discharged today at 1200 via wheelchair accompanied by spouse to home. Pt. verbalized understanding of discharge instructions and signed form.
== END 2022-07-13 12:00 | disposition home or self-care (01) ==
LOC: ED 16:23 → MEDSURG 16:32
PROVIDERS: Hospitalist; Admitting Provider Family Medicine; Emergency Provider Family Medicine; PCP Family Medicine; Visit Provider Family Medicine
DX: S82.855A Nondisplaced trimalleolar fracture of left lower leg, initial encounter for closed fracture (principal); S93.491A Sprain of other ligament of right ankle, initial encounter; S92.151A Displaced avulsion fracture (chip fracture) of right talus, initial encounter for closed fracture; Z74.09 Other reduced mobility; F41.8 Other specified anxiety disorders; Z78.0 Asymptomatic menopausal state; K21.9 Gastro-esophageal reflux disease without esophagitis; F17.200 Nicotine dependence, unspecified, uncomplicated; G43.909 Migraine, unspecified, not intractable, without status migrainosus; G47.00 Insomnia, unspecified; L40.50 Arthropathic psoriasis, unspecified; W19.XXXA Unspecified fall, initial encounter; Y93.29 Activity, other involving ice and snow; R26.2 Difficulty in walking, not elsewhere classified; S90.02XA Contusion of left ankle, initial encounter; M25.572 Pain in left ankle and joints of left foot; M79.671 Pain in right foot; Z98.890 Other specified postprocedural states; Z90.49 Acquired absence of other specified parts of digestive tract; Z90.710 Acquired absence of both cervix and uterus; Z85.820 Personal history of malignant melanoma of skin; G89.29 Other chronic pain; F12.90 Cannabis use, unspecified, uncomplicated; M25.472 Effusion, left ankle; Z96.0 Presence of urogenital implants
CPT/HCPCS: 29515; 36415; 73610; 80048; 84443; 85025; 85027; 87635; 94761; 96372; 96374; 96375; 96376; 97110; 97161; 97165; 97530; 97535; 99284; 99285; A9270; G0378; J1170; J1650; J2060; S0106

== ENCOUNTER 2022-07-15 15:11 | Outpatient (CLI) | payer OTHER, SELFPAY ==
[2022-07-15 17:10] LABS: Potassium* 4.5 mmol/L (3.6-5.1)
== END 2022-07-15 15:12 | disposition home or self-care (01) ==
PROVIDERS: PCP Family Medicine; Visit Provider Family Medicine
DX: E87.6 Hypokalemia (principal)
CPT/HCPCS: 84132

== ENCOUNTER 2022-07-16 11:17 | Day surgery (SDC) | payer OTHER, SELFPAY ==
[2022-07-16] VITALS (16 sets, daily range): BP systolic 100–128; BP diastolic 65–87; PULSE 68–85; RESP 12–16; TEMP 35.8–37.1; O2SAT 91–97; BMI 267.6
[2022-07-16] MEDS: LACTATED RINGERS 1000 ML 1,000 ML 100 ML IV ×2 (12:05→14:10)
[2022-07-16] MEDS: fentaNYL 100 MCG/2 ML inj IVP (13:10)
[2022-07-16] MEDS: MIDAZOLAM HCL 1 MG/ML inj IVP (13:10)
[2022-07-16] MEDS: CEFAZOLIN 2 GM in 0.9 % SODIUM CHLORIDE Mini-bag 100 ML IVPB (13:35)
--- NOTE | 2022-07-16 14:15 | CRLHL7_ITS ---
For Patients: As a result of the Century Cures Act, medical imaging exams and procedure reports are released immediately into your electronic medical record. You may view this report before your referring provider. If you have questions, please contact your health care provider. Indication: INTRAOP ORIF OF LT ANKLE Technique: Four fluoroscopic images of the left ankle. Fluoroscopic time 1 minute 17.4 seconds. IMPRESSION: Fluoroscopic guidance for open reduction internal fixation of distal tibial and distal fibular fractures. Dictated by Neftaly Hernandez MD @ 07/16/2022 3:03:34 PM (Electronically Signed)
--- NOTE | 2022-07-16 14:21 | P.NB_ITS ---
Nerve Block Nerve Block Time Seen by Provider: 13:10 Date Seen: 07/16/22 Type of block requested by surgeon for post-operative analgesia: popliteal Side: left Time out performed: Yes Verification of patient name: Yes Verification of date of : Yes Site marking: site marked Name of person performing procedure: Kareem Continuous monitoring Was continuous monitoring of O2 sat, B/P, site monitor, recorded every 15 minutes?: Yes Procedure Checklist: sterile prep, needles and gloves Ultrasound guided. Images saved: Yes Medications given in 5ml increments after negative aspiration: Ropivicaine %: 0.5 mL: 20 Needle gauge: 22 Patient tolerated procedure well: Yes Additional comments: Needle noted adjacent to nerve Block Charges Block Charge (with Pro Fee): Sciatic Nerve Use of Ultrasound Machine for Block: Yes- US Guidance/pain block
--- NOTE | 2022-07-16 14:22 | P.NB_ITS ---
Nerve Block Nerve Block Time Seen by Provider: 13:10 Date Seen: 07/16/22 Type of block requested by surgeon for post-operative analgesia: adductor canal Side: left Time out performed: Yes Verification of patient name: Yes Verification of date of : Yes Site marking: site marked Name of person performing procedure: Kareem Continuous monitoring Was continuous monitoring of O2 sat, B/P, electrical accessories i assembler, recorded every 15 minutes?: Yes Procedure Checklist: sterile prep, needles and gloves Ultrasound guided. Images saved: Yes Medications given in 5ml increments after negative aspiration: Ropivicaine %: 0.5 mL: 20 Needle gauge: 20 Patient tolerated procedure well: Yes Additional comments: Needle noted adjacent to nerve Block Charges Block Charge (with Pro Fee): Femoral Nerve Use of Ultrasound Machine for Block: Yes- US Guidance/pain block
--- NOTE | 2022-07-16 14:22 | W.ANESCHARGE ---
Anesthesia Charges Start Date/Time Anesthesia Start Date: 07/16/22 Anesthesia Start Time: 13:32 Stop Date/Time Anesthesia Stop Date: 07/16/22 Anesthesia Stop Time: 15:13
--- NOTE | 2022-07-16 14:52 | PM.ORPRC ---
Procedure Note Date of procedure: 07/16/22 Procedure: PREOPERATIVE DIAGNOSIS: Left ankle Traylor B trimalleolar fracture POSTOPERATIVE DIAGNOSIS: Left ankle Traylor B trimalleolar fracture NAME OF OPERATION: ORIF SURGEON: Matt Higgins MD DIRECTOR HEALTH: LEIDY Victoria ANESTHESIA: Spinal plus popliteal block ESTIMATED BLOOD LOSS: 0 mL COMPLICATIONS: None SPECIMENS: None DRAINS: None PREOPERATIVE ANTIBIOTICS: Ancef 2 g INDICATIONS: The patient is a 56-year-old who sustained a left ankle fracture. ORIF was recommended. The risks, benefits and expected outcomes were discussed in detail. These included but were not limited to: Infection, bleeding, injury to blood vessel or nerve, venous thromboembolism. All questions were answered to their satisfaction. Use of an hair or beauty salon assistant was necessary throughout the case for patient positioning and safety, soft tissue retraction and closure. PROCEDURE: A popliteal block was placed by anesthesia. Spinal anesthesia was administered. The lower extremity was prepped and draped in the usual sterile fashion. A percutaneous incision was placed over the anterior and posterior aspect of the fibula distally. A a pointed reduction clamp was placed on the lateral malleolus. This was used to regain length. We then placed a Traylor reduction clamp across the distal fracture fragment and across the tibia. This provided an excellent reduction of the fibula. A guide pin was placed in the center of the distal fragment of the fibula, percutaneously. Its placement was confirmed with the image intensifier in multiple views. A stab incision was made around the guide pin. The opening reamer was used. The guide pin was removed. The reduction finger was placed in the distal fragment. The distal fragment was held reduced. The reduction finger was taken across the fracture site. The longer, flexible guide pin was placed across the fracture, engaging the canal of the proximal fragment. The opening reamer was placed again, past the fracture site. The 3.2 mm Reamer was Used in the proximal fragment. We placed the Arthrex 3 mm x 130 mm Intramedullary nail. The talons were deployed. We placed 2 screws in the distal fragment. The piece goods clerk was removed, the end cap was placed. This provides an excellent reduction of the fibula. Attention then turned to the medial side. A curvilinear incision was made over the medial malleolus. Subcutaneous dissection sharply taken of the fracture site. Subperiosteal dissection was carried to expose the fracture. Only the anterior colliculus had been fractured off. Therefore, the distal fragment is quite small. A guide pin was placed in the distal fragment. The fracture was then reduced with this joystick and the guide pin was advanced across the fracture site into the proximal fragment. Its placement was confirmed with the image intensifier. The cannulated drill was used. We then placed a 4.0 mm x 40 mm cannulated screw was placed. This compressed the fracture nicely, reducing it anatomically.] Implants were imaged in the AP, mortise and lateral views and were felt to be well placed with an excellent reduction. The talus is nicely reduced under the tibial plafond. The syndesmosis was stressed and was found to be stable. The wounds were irrigated with normal saline. The hair or beauty salon assistant closed the skin with a 4-0 Monocryl in a subcuticular fashion. Glue was used to seal the skin. The hair or beauty salon assistant placed a dry dressing and short leg Jorge Curry splint. Sponge and needle counts were correct x 2. The patient tolerated the procedure well. There were no apparent complications. They were carefully transferred to the hospital bed and taken to the postanesthesia care unit in satisfactory condition. PLAN: The patient will be discharged to home. They will remain strict nonweightbearing on the lower extremity. They will continue to work on ice and elevation. They will follow up in the office in 2 weeks for a wound check and three views of the ankle out of the splint, prior to being seen, in preparation for a short-leg, nonweightbearing cast for a month.
[2022-07-16] MEDS: MEPERIDINE 25 MG/ML INJ 12.5 MG IVP (15:15)
--- NOTE | 2022-07-16 15:16 | W.ANESCHARGE ---
Anesthesia Charges Start Date/Time Anesthesia Start Date: 07/16/22 Anesthesia Start Time: 13:32 Stop Date/Time Anesthesia Stop Date: 07/16/22 Anesthesia Stop Time: 15:13
[2022-07-16] MEDS: ACETAMINOPHEN 325 MG TABLET 650 MG PO (16:37)
--- NOTE | 2022-07-16 18:47 | PC.NURSE ---
Pt alert and oriented x3. Pt reported pain 5/10, pain managed by PRN pain mediations. Pt denies chest pain, SOB, and nausea vomiting. Pt left leg dressing is CDI. Pt is non weight bearing on the left leg, pivots to commode. Pt is tolerating a regular diet. Written and verbal education was given to pt and significant other, pt and significant other verbalized understanding. Pt left via wheelchair with significant other at 1721. IV was taken out at discharge, catheter intact.
== END 2022-07-16 17:21 | disposition home or self-care (01) ==
LOC: OR 14:25 → MEDSURG 16:06
PROVIDERS: PCP Family Medicine; Visit Provider Orthopaedic Surgery
PROC: (CPT 27822; principal; 2022-07-16 14:15)
DX: S82.852A Displaced trimalleolar fracture of left lower leg, initial encounter for closed fracture (principal)
CPT/HCPCS: 27822; 01480; 64445; 64447; 73600; 76000; 76942; A4580; A9270; C1713; C1776; J0690; J1100; J2175; J2250; J2405; J2704; J2795; J3010; J7120

== ENCOUNTER 2022-08-04 08:58 | Day surgery (SDC) | payer OTHER, SELFPAY ==
[2022-08-04] VITALS (13 sets, daily range): BP systolic 90–130; BP diastolic 53–103; PULSE 15–81; RESP 15–18; TEMP 36.1–36.5; O2SAT 94–98; BMI 35.6
[2022-08-04] MEDS: LACTATED RINGERS 1000 ML 1,000 ML 100 ML IV (08:35)
[2022-08-04] MEDS: SODIUM CHLORIDE 0.9 % (FLUSH) 10 ML SYRINGE IVF (09:50)
[2022-08-04] MEDS: fentaNYL 100 MCG/2 ML inj IVP (09:57)
[2022-08-04] MEDS: MIDAZOLAM HCL 1 MG/ML inj IVP (09:57)
--- NOTE | 2022-08-04 10:05 | SUR.PREOP ---
TIME?OUT:?0956 PT/RN/MDA?VERIFICATION?OF?SURGICAL?SITE left ankle,?PROCEDURE nerve block,?AND?CONSENT OBTAINED?PRIOR?TO?INVASIVE?PROCEDURE.
--- NOTE | 2022-08-04 10:19 | W.ANESCHARGE ---
Anesthesia Charges Start Date/Time Anesthesia Start Date: 08/04/22 Anesthesia Start Time: 10:25 Stop Date/Time Anesthesia Stop Date: 08/04/22 Anesthesia Stop Time: 11:48
--- NOTE | 2022-08-04 10:20 | W.PM.NB ---
Nerve Block Nerve Block Time Seen by Provider: 10:08 Date Seen: 08/04/22 Type of block requested by surgeon for post-operative analgesia: adductor canal Side: left Time out performed: Yes Verification of patient name: Yes Verification of date of : Yes Site marking: site marked Name of person performing procedure: Kareem Continuous monitoring Was continuous monitoring of O2 sat, B/P, front desk monitor, recorded every 15 minutes?: Yes Procedure Checklist: sterile prep, needles and gloves Ultrasound guided. Images saved: Yes Medications given in 5ml increments after negative aspiration: Ropivicaine %: 0.5 mL: 20 Needle gauge: 20 Patient tolerated procedure well: Yes Additional comments: Needle noted adjacent to nerve Block Charges Block Charge (with Pro Fee): Femoral Nerve Use of Ultrasound Machine for Block: Yes- US Guidance/pain block
--- NOTE | 2022-08-04 10:21 | W.PM.NB ---
Nerve Block Nerve Block Time Seen by Provider: 10:08 Date Seen: 08/04/22 Type of block requested by surgeon for post-operative analgesia: geniculars Side: left Time out performed: Yes Verification of patient name: Yes Verification of date of : Yes Site marking: site marked Name of person performing procedure: Kareem Continuous monitoring Was continuous monitoring of O2 sat, B/P, cardiac surgeon, recorded every 15 minutes?: Yes Procedure Checklist: sterile prep, needles and gloves Medications given in 5ml increments after negative aspiration: Ropivicaine %: 0.5 mL: 9 Needle gauge: 25 Patient tolerated procedure well: Yes Block Charges Block Charge (with Pro Fee): Genicular Nerve Block Use of Ultrasound Machine for Block: No
--- NOTE | 2022-08-04 10:45 | CRLHL7_ITS ---
For Patients: As a result of the Cures Act, medical imaging exams and procedure reports are released immediately into your electronic medical record. You may view this report before your referring provider. If you have questions, please contact your health care provider. Indication: Left ankle ORIF revision Technique: Three fluoroscopic images of the left ankle. Fluoroscopic time 71.1 seconds. IMPRESSION: Fluoroscopic guidance for syndesmotic fusion. Dictated by Neftaly Hernandez MD @ 08/04/2022 12:22:56 PM (Electronically Signed)
--- NOTE | 2022-08-04 11:31 | P.ORPRC_ITS ---
Procedure Note Date of procedure: 08/04/22 Procedure: PREOPERATIVE DIAGNOSIS: Left ankle Traylor B bimalleolar fracture POSTOPERATIVE DIAGNOSIS: Left ankle Traylor B bimalleolar fracture NAME OF OPERATION: Syndesmotic fixation SURGEON: Matt Higgins MD FRONT MAN: Cecilia Regan PA-C ANESTHESIA: General plus popliteal block ESTIMATED BLOOD LOSS: 0 mL COMPLICATIONS: None SPECIMENS: None DRAINS: None PREOPERATIVE ANTIBIOTICS: Ancef 1 gram INDICATIONS: The patient is a 56-year-old who sustained a left ankle fracture. ORIF was completed a couple of weeks ago. During her follow-up it was noted that the talus was laterally translated just under 2 mm. Therefore, revision of her fixation with the addition of syndesmotic screws was recommended. The risks, benefits and expected outcomes were discussed in detail. These included but were not limited to: Infection, bleeding, injury to blood vessel or nerve, venous thromboembolism. All questions were answered to their satisfaction. Use of an assistant professor in family studies was necessary throughout the case for patient positioning and safety, soft tissue retraction and closure. PROCEDURE: A popliteal block was placed by anesthesia. General anesthesia was administered. The lower extremity was prepped and draped in the usual sterile fashion. A Traylor reduction clamp was placed on the distal fragment of the fibula. Longitudinal traction was placed on this fragment. We then placed the syndesmotic reduction clamp. A K-wire x 2 was placed across the syndesmosis, through the intramedullary nail using a freehand technique with the image intensifier in the lateral view. Their placement was confirmed in both AP and lateral views. The cannulated drill was used. We then placed a 3.5 mm by 48 mm and 3.5 mm by 52 mm syndesmotic screws. The syndesmotic clamp was removed. The image intensifier was used to confirm the screw placement. The talus is nicely reduced under the tibial plafond. Wounds were irrigated normal saline, closed with a 3-0 Monocryl and glue. The assistant professor in family studies placed a dry dressing and short leg Jorge Curry splint. Sponge and needle counts were correct x 2. The patient tolerated the procedure well. There were no apparent complications. They were carefully transferred to the hospital bed and taken to the postane sthesia care unit in satisfactory condition. PLAN: The patient will be discharged to home. They will remain strict nonweightbearing on the lower extremity. They will continue to work on ice and elevation. They will follow up in the office in 1-2 weeks for a wound check and three views of the ankle out of the splint, prior to being seen, in preparation for a short-leg nonweightbearing cast.
--- NOTE | 2022-08-04 11:55 | W.ANESCHARGE ---
Anesthesia Charges Start Date/Time Anesthesia Start Date: 08/04/22 Anesthesia Start Time: 10:25 Stop Date/Time Anesthesia Stop Date: 08/04/22 Anesthesia Stop Time: 11:48
== END 2022-08-04 13:00 | disposition home or self-care (01) ==
PROVIDERS: PCP Family Medicine; Visit Provider Orthopaedic Surgery
PROC: (CPT 27829; principal; 2022-08-04 10:45)
DX: S82.842A Displaced bimalleolar fracture of left lower leg, initial encounter for closed fracture (principal)
CPT/HCPCS: 27829; 01480; 64447; 64454; 73600; 76000; 76942; A4580; C1713; J2250; J2400; J2405; J2704; J2795; J3010; J7120

== ENCOUNTER 2022-10-05 09:45 | Outpatient (RCR) | payer OTHER, SELFPAY | END 2023-01-01 14:44 | disposition home or self-care (01) | PROVIDERS: PCP Family Medicine; Visit Provider Orthopaedic Surgery | DX: Z87.81 Personal history of (healed) traumatic fracture (principal); M25.572 Pain in left ankle and joints of left foot; R26.89 Other abnormalities of gait and mobility; Z51.89 Encounter for other specified aftercare | CPT/HCPCS: 97110; 97162 ==

== ENCOUNTER 2022-10-09 15:00 | Outpatient (CLI) | payer OTHER, SELFPAY ==
--- NOTE | 2022-10-09 15:00 | CRLHL7_ITS ---
For Patients: As a result of the Century Cures Act, medical imaging exams and procedure reports are released immediately into your electronic medical record. You may view this report before your referring provider. If you have questions, please contact your health care provider. INDICATION: Pain and swelling COMPARISON: None. TECHNIQUE: A compression venous ultrasound exam was performed of the left lower extremity using mccall-scale imaging, color Doppler and spectral Doppler analysis. FINDINGS: Sonographic imaging of the left lower extremity demonstrates normal compressibility and color Doppler venous blood flow within the common femoral vein, deep femoral vein, and the proximal greater saphenous vein. Within the thigh, the femoral vein is patent and compressible. At a lower level, the popliteal and posterior tibial veins also show normal compressibility and color Doppler venous blood flow. Limited imaging of the contralateral groin demonstrates a normal spectral waveform and color Doppler venous blood flow within the right common femoral vein. IMPRESSION: Normal venous ultrasound exam. No evidence of deep vein thrombosis within the left lower extremity. Dictated by Neftaly Hernandez MD @ 10/09/2022 3:54:56 PM (Electronically Signed)
== END 2022-10-09 15:01 | disposition home or self-care (01) ==
LOC: US 15:01
PROVIDERS: PCP Family Medicine; Visit Provider Physician Assistant
DX: M79.605 Pain in left leg (principal); Z87.81 Personal history of (healed) traumatic fracture; Z98.890 Other specified postprocedural states
CPT/HCPCS: 93971

== ENCOUNTER 2022-12-02 06:55 | Day surgery (SDC) | payer OTHER, SELFPAY ==
[2022-12-02] MEDS: LACTATED RINGERS 1000 ML 1,000 ML 100 ML IV (06:55)
[2022-12-02 07:36] VITALS: BP 118/81; PULSE 84; RESP 16; TEMP 36.9; O2SAT 96
[2022-12-02 07:37] VITALS: BMI 35.6
--- NOTE | 2022-12-02 07:45 | CRLHL7_ITS ---
For Patients: As a result of the Cures Act, medical imaging exams and procedure reports are released immediately into your electronic medical record. You may view this report before your referring provider. If you have questions, please contact your health care provider. Indication: INTRAOP REQUEST FOR SCREW REMOVAL Technique: Three fluoroscopic images of the left ankle. Fluoroscopic time 4.4 seconds. IMPRESSION: Fluoroscopic guidance for syndesmotic screw removal. Dictated by Neftaly Hernandez MD @ 12/02/2022 9:16:57 AM (Electronically Signed)
[2022-12-02] MEDS: CEFAZOLIN 2 GM INJ IVP (08:08)
--- NOTE | 2022-12-02 08:47 | P.ORPRC_ITS ---
Procedure Note Date of procedure: 12/02/22 Procedure: PREOPERATIVE DIAGNOSIS: Left ankle fracture ORIF with retained hardware POSTOPERATIVE DIAGNOSIS: Left ankle fracture ORIF with retained hardware SURGEON: Matt Higgins MD FOREIGN STUDENT ADVISER: Alberto David PA-C NAME OF OPERATION: Hardware removal deep ANESTHESIA: Local ESTIMATED BLOOD LOSS: 0 mL COMPLICATIONS: None SPECIMENS: None DRAINS: None PREOPERATIVE ANTIBIOTICS: Ancef 2 gram INDICATIONS: The patient is a 56-year-old who sustained an ankle fracture. ORIF was completed previously. They present today for elective syndesmotic screw removal. The risks, benefits and expected outcomes were discussed in detail. These included but were not limited to: Infection, bleeding, injury to blood vessel or nerve, venous thromboembolism. All questions were answered to their satisfaction. Use of an foundation assistant was necessary throughout the case for patient positioning and safety, soft tissue retraction and closure. PROCEDURE: The patient was placed supine on the operating room table. IV sedation was administered. The lower extremity was prepped and draped in the usual sterile fashion. Local anesthesia was established with several mL of a 50:50 mixture of 1% lidocaine with epinephrine, 0.5% Marcaine with epinephrine. The image intensifier was used to confirm location of the syndesmotic screws. We utilized our previously placed incision and opened it longitudinally. Subcutaneous dissection was bluntly taken to the screw heads which were fully exposed. Each screw was removed intact, without complication. The image intensifier was used to obtain an AP, mortise and lateral view of the ankle, showing the screws have been removed. The talus remains nicely reduced under the tibia. The wound was irrigated with normal saline. The foundation assistant closed soft tissue with a 3-0 Vicryl deep and a 3-0 Monocryl in a subcuticular fashion. The foundation assistant placed a soft dressing. Sponge and needle counts were correct x 2. The patient tolerated the procedure well. There were no apparent complications. They were carefully transferred to the hospital bed and taken to the postanesthesia care unit in satisfactory condition. PLAN: The patient will be discharged to home. They may weightbear as tolerates. Ice, ibuprofen and Tylenol will be used as needed for pain. They will follow up in the office in 2 weeks for a wound check.
[2022-12-02] MEDS: BUPIVACAINE 0.5% 30 ML INJECTION (08:51)
[2022-12-02 09:08] VITALS: BP 105/77; PULSE 82; RESP 16; TEMP 36.1; O2SAT 94
--- NOTE | 2022-12-02 09:12 | W.ANESCHARGE ---
Anesthesia Charges Start Date/Time Anesthesia Start Date: 12/02/22 Anesthesia Start Time: 07:58 Stop Date/Time Anesthesia Stop Date: 12/02/22 Anesthesia Stop Time: 09:09
== END 2022-12-02 09:47 | disposition home or self-care (01) ==
PROVIDERS: PCP Family Medicine; Visit Provider Orthopaedic Surgery
PROC: (CPT 20680; principal; 2022-12-02 08:15)
DX: Z47.2 Encounter for removal of internal fixation device (principal)
CPT/HCPCS: 20680; 01480; 73600; 76000; J0665; J0690; J2250; J2704; J3010; J3490; J7120

== ENCOUNTER 2024-08-02 13:03 | Emergency (ER) | payer BC, SELFPAY ==
--- OUTSIDE RECORDS SUMMARY | 2024-08-02 13:06 | XMS_ITS | Clinical Summary ---
Author Organization [facility] Address [address] [place] [id number] Care Team Providers Care Manuscript Editor Name Role Phone Silva Alberto MD Primary Care Provider [phone] Allergies Active Allergy Reactions Criticality Noted Date Comments Adhesive Anaphylaxis,Rash High 11/27/2009 Zolpidem Tartrate Other - Describe In Comment Field 07/20/2014 Sleep eating Amoxicillin Angioedema 01/16/2008 Clindamycin Anaphylaxis High 04/16/2016 Prochlorperazine Confusion 01/16/2008 Droperidol Agitation High 06/11/2009 Feels like the same rxn as compazine Medications cholecalciferol (VITAMIN D-3) 2,000 unit capsuleIndications :Vitamin D deficiency Take 1 capsule by mouth once daily. 90 capsule 3 04/25/20 18 Active betamethasone dipropionate 0.05% (DIPROSONE LOTION 0.05%) lotion Apply to scalp once daily 60 mL 1 0 4:46 PM CDT 09/07/19 20 Active vitamin e 1,000 unit cap Take by mouth once daily. 0 12/06/19 21 Active metroNIDAZOLE 0.75 % cream APPLY TO AFFECTED AREA ON FACE ONCE DAILY 09/03/19 22 Active sulfacetamide sodium-sulfur (SulfaCleanse 8-4) 8-4 % suspensionIndicati ons:Other rosacea Wash face once daily 473 mL 3 02/05/20 22 Active triamcinolone (ARISTOCORT; KENALOG) 0.1 % creamIndications:P soriasis of scalp Apply topically to affected area(s) two times daily. 28.4 g 02/05/20 Active baclofen (LIORESAL) 10 mg tabletIndications: Muscle spasm TAKE 1 TABLET (10 MG) BY MOUTH TWO TIMES DAILY. 30 Tablet 11/20/19 23 Active buPROPion (WELLBUTRIN SR) 150 mg Sustained-Release tabletIndications: Depression with anxiety Take 1 Tablet (150 mg) by mouth two times daily. 180 Tablet 3 03/22/20 Active EPINEPHrine (EpiPen) 0.3 mg/0.3 mL auto-injectorIndic ations:Allergy to adhesive Inject 0.3 mg intramuscular one time if needed for Allergic Reaction. 2 Each 03/22/20 Active ipratropium-albute roL (COMBIVENT RESPIMAT) (20-100 mcg each actuation) mist inhalerIndications :PARKER (dyspnea on exertion) Inhale 1 Puff by mouth every 12 hours if needed for Shortness Of Breath. 1 Each 03/22/20 23 Active potassium chloride (KLOR-CON M20) 20 mEq extended-release tablet (part/cryst)Indica tions:Hypokalemia Take 1 Tablet (20 mEq) by mouth once daily with a meal. 90 Tablet 03/23/20 Active traZODone (DESYREL) 100 mg tabletIndications: Insomnia, idiopathic TAKE 2 TABLETS (200 MG) BY MOUTH AT BEDTIME 180 Tablet 04/17/20 24 Active pantoprazole (PROTONIX) 40 mg delayed-release tabletIndications: Chronic GERD TAKE 1 TABLET BY MOUTH EVERY DAY BEFORE A MEAL 90 Tablet 04/15/20 24 Active fluticasone (50 mcg per actuation) nasal solution (FLONASE)Indicatio ns:Seasonal allergies INHALE 1 SPRAY INTO BOTH NOSTRILS 2 TIMES DAILY 48 mL 04/15/20 24 Active amitriptyline (ELAVIL) 50 mg tabletIndications: Irritability Take 1 Tablet (50 mg) by mouth at bedtime. 90 Tablet 3 04/17/20 24 Active estrogens conjugated (Premarin) 0.625 mg tabletIndications: Menopause Take 1 Tablet (0.625 mg) by mouth once daily. 270 Tablet 04/17/20 24 Active ondansetron (ZOFRAN ODT) 4 mg disintegrating tabletIndications: Esophageal dysphagia PLACE 1 TABLET ON THE TONGUE EVERY 8 HOURS NEEDED FOR NAUSEA AND VOMITING 30 Tablet 05/22/20 24 Active Active Problems Problem Noted Date Diagnosed Date Psoriatic arthritis 02/04/2022 Chronic GERD 04/08/2020 BMI 34.0-34.9,adult 04/28/2017 Allergy to adhesive 05/01/2015 Atypical nevi 09/22/2013 Overview (06/09/2016): 4/ midline upper back, moderately atypical compound nevus, excised 2008, left mid back, mild atypical Reminder letter sent 06/09/2016 Liver cyst 03/01/2013 Menopause 08/22/2012 Overview (08/22/2012): Hot flashes -- started 07/2012, plan short-term therapy Insomnia, unspecified 10/16/2011 Depression with anxiety 09/24/2011 Esophageal dysphagia 07/22/2011 Overview (07/26/2011): Secondary to Fanny fundoplication. Underwent EGD-mediated dilatation on 07/23/2011 with improved symptoms. Reflux esophagitis 12/10/2008 Overview (07/22/2011): S/p Fanny fundoplication in January,. Still with significant symptoms. Migraine, unspecified, witho ut mention of intractable migraine without mention of status migrainosus 11/14/2007 Overview (07/22/2011): Gets at least weekly headaches. On topamax daily along with a triptan as needed. Encounter for screening colonoscopy Resolved Problems Problem Noted Date Diagnosed Date Resolved Date Arthralgia 04/08/2020 06/12/2022 Cholecystitis 06/28/2017 08/22/2018 Chronic neck pain 12/27/2013 06/12/2022 Nausea with vomiting 07/22/2011 012 Overview (07/26/2011): Secondary to dysphagia, improved during hospitalization on 07/26/2011. Seizure 05/13/2011 07/22/2011 Panic disorder without agoraphobia 01/01/2011 07/22/2011 Chronic idiopathic urticaria 11/20/2010 07/22/2011 Atypical anxiety disorder 12/16/2009 Overview (07/22/2011): On as needed ativan Malignant melanoma of skin o f upper limb, including shoulder 06/11/2009 02/04/2022 Overview (11/24/2017): Stage 3, with curative resection in 2009. Still on leukine therapy (14 days on, 4 days off). Follows with Dr. Noyola. 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 Removing from melanoma recall. Malignant melanoma of skin o f other and unspecified parts of face 06/06/2009 11/20/2010 Hypovitaminosis D 12/11/2008 11/20/2010 Morbid obesity 12/10/2008 11/20/2010 Chest pain 12/09/2008 06/07/2009 SIGNIFICANT OBESITY BMI 39.5 12/09/2008 07/22/2011 Ovarian cystic mass 01/20/2008 06/07/19 10 Overview (01/20/2008): pelvic US showed 2.0 cm x 1.7 cm x 1.4 cm complex cystic mass on the right ovary with moderately thickened wall, likely benign. Follow up US in 6-8 weeks required to ensure involution. Headache(784.0) 01/16/2008 01/16/2008 RIGHT FLANK PAIN 01/16/2008 06/07/2009 SEVERE ESOPHAGEAL REFLUX 11/14/200712/2009 Overview (12/09/2008): Almost continuous pain over last two years. ? Candidate for Laprascopic Fanny Dysphagia 06/12/2022 Encounters Date Type Department Care Team Description 07/19/2024 Telephone [facility] [address] [place] [address] Silva Alberto MD Prior Authorization (estrogens conjugated (Premarin) 0.625 mg tablet DENIAL) 05/20/2024 Refill [facility] [address] [place] [address] Silva Alberto MD Refill Request (Ondansetron) 05/04/2024 Travel from Last 3 Months Immunizations Name Administration Dates Next Due COVID-19 VACCINE SPIKEVAX (M ODERNA 50MCG/0.5ML) 12YO+ PFS 03/22/2023 COVID-19 vaccine (Moderna 100mcg/0.5mL) PF, MDV 08/09/2020,07/12/2020 COVID-19 vaccine ([employer]-Bio NTech 30mcg/0.3mL) 12YO+ BIVALENT PF, MDV 03/12/2022 COVID-19 vaccine (Pfizer-Bio NTech 30mcg/0.3mL) 12YO+ GIULIA-SUCROSE PF, MDV 03/12/2022 Influenza Virus, Unspecified 02/11/2012,03/12/20 11,04/21/2010 Influenza, IIV3 (Age >=3 years) 03/27/20 13,02/11/2012,03/12/2011,2009,03/06/2009,04/16/2008 Influenza, IIV4 03/22/2023,,02/15/2019,2017,04/28/2017,02/19/2016,01/28/2015,0 02/26/2014,03/27/2013,02/11/2012, 011,04/21/2010 Influenza, RIV3 (Age =>18 Years) 02/26/2014 Pneumococcal Conj 20-valent (Prevnar 20) 02/04/2022 Pneumococcal Poly,23-Valent (Pneumovax) 06/12/2009 Td (Age >=7 Years) 10/28/2005 Tdap 10/04/2013 Zoster (Shingrix-RZV, recombinant) 04/14/2022, Family History Medical History Relation Name Comments Good Health Brother 2 Good Health Father Cancer Mother brain mass Cancer-breast Mother Diabetes Mother Stroke Mother Heart Disease Paternal Grandfather report s that he took nitro Heart Disease Sister 2 recent treatme nt currently monitored with telemetry Cancer Sister 3 ovarian Cancer-colon No Family History Cancer-prostate No Family History Relation Name Status Comments Brother 1 Alive Brother 2 Father Alive Mother Alive Paternal Grandfather Sister 1 Alive Sister 2 Sister 3 Social History Tobacco Use Types Packs/Day Years Used Date Smoking Tobacco: Some Days Cigarettes Last attempted to quit: 01/31/2022 Smokeless Tobacco: Never Tobacco Cessation:Ready to Q uit: Not Asked; Counseling Given: Not Answered Comments:When she's drinking Alcohol Use Standard Drinks/Week Comments Yes 0 (1 standard drink = 0.6 oz pur e alcohol) occasional PHQ-2 Answer Date Recorded PHQ-2 TOTAL SCORE 0 03/22/2023 Social Connections Answer Date Recorded Frequency of Communication with Friends and Fami ly 0 06/11/2022 Financial Resource Strain Answer Date R ecorded Difficulty of Paying Living Expenses 3 06/11/2022 Difficulty of Paying Living Expenses Not on file 06/11/2022 Food Insecurity Answer Date Recorded Worried About Running Out of Food in the Last Ye ar 1 06/11/2022 Transportation Needs Answer Date Record ed Lack of Transportation (Medical) 1 06/11/2022 Housing Stability Answer Date Recorded Unable to Pay for Housing in the Last Year 1 06/11/2022 Comments No Sex and Gender Information Value Date Recorded Sex Assigned at Not on file Legal Sex Female 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 Gender Identity Not on file Sexual Orientation Not on file Occupation Industry Job Start Date Job End Date not working Not on file Not on file Not on file Obstetrics History Para Term AB IAB SAB Ectopic Multiple Livin g Live Births 3 2 2 1 1 2 Date Outcome GA Total Labor Labor/2nd/3rd Weight Sex Type Anes PTL Helen A1 A5 Name Clin Term Term SAB Last Filed Vital Signs Vital Sign Reading Time Taken Comments Blood Pressure 100/64 03/22/2023 11:36 AM CDT Pulse 60 03/22/2023 11:36 AM CDT Temperature 36.6 C (97.9 F) 06/25/2022 11:26 AM TYPING OFFICE WORKER Respiratory Rate 22 06/25/2022 11:26 AM TYPING OFFICE WORKER Oxygen Saturation 96% 06/25/2022 2:01 PM TYPING OFFICE WORKER Inhaled Oxygen Concentration - - Weight 80.7 kg (178 lb) 03/22/2023 11:36 AM CDT Height 162.6 cm (5' 4) 03/22/2023 11:36 AM CDT with shoes Body Mass Index 30.55 03/22/2023 11:36 AM CDT Plan of Treatment Health Maintenance Due Date Last Done Comments Mammogram for age 45-75 03/04/2023 03/04/20, 09/06/2020, 06/15/2018, Additional history exists Tetanus booster 10/05/2023 10/04/2013, 03/31, 10/28/2005 COVID-19 vaccine series ( season) 2024 03/22/2023, 03/12/2022, 03/12/2022, Additional history exists Influenza for age 50-64 01/30/2024 03/22/20, 02/04/2022, 02/15/2019, Additional history exists BMI (ht and wt on same day) for age 18+ 03/22/2024 03/22/2023, 06/12/2022, 03/12/2022, Additional history exists Depression screening for age 12+ 03/22/2024 03/22/2023, 03/12/2022, 02/04/2022, Additional history exists Colonoscopy through age 75 01/29/202601/29, 12/30/2010, 04/04/2008 Lipids for age 45-75 03/22/2028 03/22/2023, 02/04/2022, 08/23/2020, Additional history exists Tdap Completed 10/04/2013 Hepatitis C screening for ag e 18-79 Completed 02/04/2022 Pneumococcal series for age 50+ Completed , 06/12/2009 Zoster (shingles) series for age 50+ Completed 04/14/2022, 02/15/2019 HIV for age 15-65 Completed 03/22/2023 Medical Devices Implanted Type Area Salesperson Meats Device Identifier Shelf Expiration Date Model / Serial / Lot [id number] - [id number] Implanted:Qty: 1 on 09/09/2015 by Óscar Garcia DPM at [facility] Right: [employer]e [employer] 04/29/2021 [id number] / / [id number] Description:LPT REGULAR GREA T TOE SIZE #2 Procedures Procedure Name Priority Date/Time Associated Diagnosis Comments ANTI HIV 1/2 Routine 03/22/2023 12:15 PM CDT Screening for HIV (human immunodeficiency virus) LIPID PANEL W REFLEX MEASURED LDL Routine 03/22/2023 12:15 PM CDT Lipid screening XR MAMMO BILAT SCREENING Routine 03/04/2022 1:55 PM CDT Visit for screening mammogram ANTI HCV Routine 02/04/2022 3:44 PM CDT Encounter for hepatitis C screening test for low risk patient COLONOSCOPY 01/29/2021 10:43 AM CDT from Last 3 Months or Most Recently Relevant to Health Maintenance Results * (ABNORMAL) LIPID PANEL W REFLEX MEASURED LDL (03/22/2023 12:15 PM CDT) CHOLESTEROL,TOTAL 239(H) 100 - 199 mg/dL 03/22/2023 1:21 PM [facility] Comment: Cholesterol, Total Reference Ranges Desirable <200 mg/dL Borderline 200-239 mg/dL High >=240 mg/dL TRIGLYCERIDES 141 <150 mg/dL 03/22/2023 1:21 PM [facility] HDL CHOLESTEROL 72 >40 mg/dL 1:21 PM [facility] NON-HDL CHOLESTEROL 167(H) <145 mg/dl 03/22/2023 1:21 PM [facility] CHOL/HDL RATIO 3.32 <4.50 03/22/2023 1:21 PM [facility] LDL CHOLESTEROL 139(H) <=130 mg/dL 03/22/2023 1:21 PM [facility] VLDL CHOLESTEROL 28 <=30 mg/dL 03/22/2023 1:21 PM [facility] PROVIDER ORDERED STATUS RANDOM 03/22/2023 1:21 PM [facility] Blood BLOOD SPECIMEN / Unknown Venipuncture / Unknown 03/22/2023 12:15 PM CDT 03/22/2023 12:16 PM CDT Silva Alberto MD CHEMISTRY Final Result [facility] [address] [place] [address] * ANTI HIV 1/2 (03/22/2023 12:15 PM CDT) HIV-1/HIV-2 SCREEN Non-Reacti ve Non-Reacti ve 03/22/2023 10:25 PM CDT [facility] Comment:HIV-1 p24 and HIV-1/ HIV-2 Ab Not Detected. Blood BLOOD SPECIMEN / Unknown Venipuncture / Unknown 03/22/2023 12:15 PM CDT 03/22/2023 12:16 PM CDT us Silva Alberto MD SEND OUTS Final Result Performing Organization Address City/[facility] [address]/ZIP Co de Phone Number [facility] [address] [place] [id number], [place] * XR MAMMO BILAT SCREENING (03/04/2022 1:55 PM CDT) Anatomical Region Laterality Modality BREASTS, Breast Left, Breast Right Bilateral Mammography Impressions 03/05/2022 6:34 AM CDT There is no radiographic evidence for malignancy. Recommend annual mammograms. MAMMOGRAM ASSESSMENT: ACR 2 Benign PATIENTS: You will also receive a letter with your examination results in an easy to read format. If you have questions about your results, please contact your referring provider. Narrative 03/05/2022 6:34 AM CDT For Patients: As a result of the Century Cures Act, medical imaging exams and procedure reports are released immediately into your electronic medical record. You may view this report before your referring provider. If you have questions, please contact your health care provider. XR MAMMO BILAT SCREENING [[id number]] CLINICAL HISTORY: This is an asymptomatic 56 y.o. patient. INDICATION FOR EXAM: Mammogram Screening. TECHNIQUE: CC & MLO views were obtained. This study was evaluated with the assistance of Computer-Aided Detection. COMPARISON FILMS: Yes 09/06/20 [facility] FINDINGS: The breasts are almost entirely fatty. No suspicious masses or microcalcifications. Post surgical changes within right breast. us Silva Alberto MD MAMMO Final Result * ANTI HCV (02/04/2022 3:44 PM CDT) HEPATITIS C ANTIBODY Non-React elsa Non-React elsa 02/05/2022 8:49 PM CDT [facility] Comment:Antibodies to HCV no t detected; does not exclude the possibility of exposure to HCV. Blood BLOOD SPECIMEN / Unknown Venipuncture / Unknown 02/04/2022 3:44 PM CDT 02/04/2022 3:48 PM CDT Silva Alberto MD SEND OUTS Final Result [facility] [address] [place] [address], [place] * COLONOSCOPY (01/29/2021 10:43 AM CDT) 01/29/2021 10:4 3 AM CDT Narrative Transcriptions Ehsan Osorio MD - 01/29/2021 11:49 AM CDT Patient Name: Anne Butler Procedure Date: 01/29/2021 Gender: Female Date of : 1965 Admit Type: Ambulatory Procedure: Colonoscopy Proceduralist: Ehsan Julio Indications/Pre-Op Diagnosis: Screening for colorectal malignantneoplasm Medications: Midazolam 7 mg IV, Fentanyl 150 microgramsIV Procedure Description: The patient had risks, benefits and alternatives explained to andgave informed consent. The patient had a stable cardiopulmonary status and judged an adequate candidate for conscious sedation. The colonoscope was passed through the anus and advanced to thececum, identified by appendiceal orifice and ileocecal valve. Thecolonoscopy was performed without difficulty. The patient tolerated the procedure well. The quality of the bowel preparation was good. The ileocecal valve, appendiceal orifice, and rectum were photographed. Complications: No immediate complications. Estimated Blood Loss & Specimen: Estimated blood loss: none. Specimen collected - Yes and sent to Laboratory Findings: The perianal and digital rectal examinations were normal. A 5 mm polyp was found in the hepatic flexure. The polyp was sessile. The polyp was removed with a hot snare. Resection and retrieval were complete. A 5 mm polyp was found in the proximal ascending colon. The polyp was sessile. The polyp was removed with a hot snare. Resection andretrieval were complete. A 4 mm polyp was found in the rectum. The polyp was sessile. Thepolyp was removed with a hot snare. Resection and retrieval werecomplete. The retroflexed view of the distal rectum and anal verge was normaland showed no anal or rectal abnormalities. Impressions/Post-Op Diagnosis: - One 5 mm polyp at the hepatic flexure, removed with a hot snare. Resected and retrieved. - One 5 mm polyp in the proximal ascending colon, removed with a hot snare. Resected and retrieved. - One 4 mm polyp in the rectum, removed with a hot snare. Resectedand retrieved. Recommendation: - Discharge patient to home. - Resume previous diet. - Continue present medications. - Await pathology results. - Repeat colonoscopy in 5 years for surveillance. Moderate Sedation: Moderate (conscious) sedation was administered by the endoscopy nurse and supervised by the endoscopist. The following parameters were monitored: oxygen saturation, heart rate, respiratory rate, adequacyof pulmonary ventilation and reponse to care. Please refer to the patient's medical record flowsheets for moderate sedation details. Moderate (conscious) sedation was administered by the endoscopy nurse and supervised by the endoscopist. The patient's oxygen saturation, heart rate, blood pressure and response to care were monitored. Total physician intraservice time was 27 minutes. Ehsan Osorio, 01/29/2021 11:49:32 AM This report has been signed electronically. Note Initiated On: 01/29/2021 10:43 AM Ehsan Osorio MD PROCEDURE ORD Final Res ult from Last 3 Months or Most Recently Relevant to Health Maintenance Insurance [employer] [facility] [employer] OF [place] Advance Directives * Full Code (Latest Code Status on File) Date Activated Date Inactivated Comments 01/29/2021 9:52 AM 01/29/2021 2:30 PM Question Answer Comments Code Status Discussion: Per Existing Order * Full Code Date Activated Date Inactivated Comments 08/28/2020 7:47 AM 08/28/2020 11:46 AM Question Answer Comments Code Status Discussion: Per Existing Order * Full Code Date Activated Date Inactivated Comments 03/19/2015 9:45 AM 03/19/2015 12:43 PM * Full Code Date Activated Date Inactivated Comments 03/19/2015 8:26 AM 03/19/2015 9:45 AM * Full Code Date Activated Date Inactivated Comments 07/22/2011 4:42 PM 07/26/2011 5:01 PM Care Teams Manuscript Editor Relationship Specialty Start Date End Date Silva Alberto MD [address] [place] [address] PCP - General 01/05/08
[2024-08-02 13:15] VITALS: BP 110/77; PULSE 81; RESP 20; TEMP 36.2; O2SAT 97; BMI 27.2
--- NOTE | 2024-08-02 13:42 | CRLHL7_ITS ---
For Patients: As a result of the 21st Century Cures Act, medical imaging exams and procedure reports are released immediately into your electronic medical record. You may view this report before your referring provider. If you have questions, please contact your health care provider. Indication: ABD PAIN. WEIGHT LOSS, NAUSEA. HX OF MELANOMA Technique: CT of the chest, abdomen, and pelvis was obtained with 72 mL of Isovue 370 intravenous contrast. Please note that all CT scans at this facility use dose modulation, iterative reconstruction, and/or weight-based dosing when appropriate to reduce radiation dose to as low as reasonably achievable. Comparison: None. Findings: CHEST: Medical devices: None. Thyroid: Normal. Lymph nodes: No supraclavicular, axillary, mediastinal, or hilar lymphadenopathy. Vasculature: Aorta and main pulmonary artery diameters are within normal range. Heart: Normal. No pericardial effusion. Other mediastinal structures: Small calcified lower mediastinal lymph node. Lung parenchyma and pleura: 3 millimeter medial right lower lobe pulmonary nodule (3/56). 8 millimeter medial right lower lobe pulmonary nodule (3/61). Airways: No significant abnormality. Chest wall: Right axillary surgical clips. ABDOMEN/PELVIS: Liver and biliary tree: 1.1 centimeter hepatic cyst (2/129). Additional subcentimeter hypoattenuating lesions are too small to characterize. Suspected focal fat is seen adjacent to the Gallbladder: Status post cholecystectomy. Spleen: Calcified granulomata. Pancreas: Normal. Adrenal glands: Normal. Kidneys and ureters: No hydronephrosis. No obstructing renal calculi. 2.3 centimeter left renal cyst (2/147). Gastrointestinal tract: Moderate submucosal edema of the colon, most prominently affecting the ascending colon. No evidence of acute appendicitis. No evidence of bowel obstruction. Peritoneal cavity: Normal. Bladder: Normal. Pelvic organs: Status post hysterectomy. Vasculature: Minimal calcification. Lymph nodes: Normal. Abdominal wall: Normal. Musculoskeletal: Mild degenerative changes of the bilateral hips. Impression: 1. Medial right lower lobe pulmonary nodules measuring up to 8 millimeter. These are nonspecific. Prior examinations if available would be helpful for comparison. 2. Moderate submucosal edema of the colon, most prominently affecting the ascending colon. Findings may represent infectious or inflammatory colitis. Please note that all CT scans at this facility use dose modulation, iterative reconstruction, and/or weight-based dosing when appropriate to reduce radiation dose to as low as reasonably achievable. Dictated by Cameron Tello MD @ 08/02/2024 3:03:54 PM (Electronically Signed)
--- NOTE | 2024-08-02 13:55 | ED_ITS ---
HPI - General Adult General Date Seen: 08/02/24 Chief complaint: Abdominal Pain Stated complaint: Nausea Time Seen by Provider: 08/02/24 13:18 History of Present Illness HPI narrative: Patient is a 58-year-old woman who is here for evaluation of a couple weeks of nausea and she says about a year of decreased appetite and weight loss. She says she lost 30 lb kind of all at once and then has lost 20 more over the course of an unclear period of time. She says that the nausea just started a couple weeks ago but overall she just has not been eating very much because she is hungry. She now feels like she is pretty dehydrated because she is not drinking very much either. She has diffuse abdominal pain which comes and goes. She has not vomited blood, is in fact she has not had any vomiting at all. She has had a little diarrhea today but generally stools have been normal, denies black or bloody stools. No fevers. She does smoke, denies any alcohol use. She has not seen a doctor for about a year and a half as her regular doctor apparently retired and she has not seen anybody since then. Has not seen anyone for these symptoms. Medical history otherwise includes ankle fracture and anemia, she status post Fanny fundoplication, cholecystectomy and hysterectomy but does still have ovaries. Related Data Home Medications ?Medication ?Instructions ?Recorded ?Confirmed amitriptyline 50 mg tablet 50 mg PO HS 07/10/22 11/24/22 bupropion HCl 150 mg tablet,12 hr 150 mg PO BID 07/10/22 11/24/22 sustained-release cholecalciferol (vitamin D3) 50 50 mcg PO DAILY 07/10/22 11/24/22 mcg (2,000 unit) capsule conjugated estrogens 0.45 mg 0.45 mg PO HS 07/10/22 11/24/22 tablet (Premarin) epinephrine 0.3 mg/0.3 mL 0.3 mg IM PRN PRN 07/10/22 11/24/22 injection, auto-injector fluticasone propionate 50 1 spray intranasal BID 07/10/22 11/24/22 mcg/actuation nasal spray,suspension ipratropium 20 mcg-albuterol 100 1 puff inhalation BID PRN 07/10/22 11/24/22 mcg/actuation mist for inhalation (Combivent Respimat) metronidazole 0.75 % topical cream 1 applic topical DAILY PRN 07/10/22 11/24/22 ondansetron 4 mg disintegrating 4 mg PO Q8H PRN 07/10/22 11/24/22 tablet pantoprazole 40 mg tablet,delayed 40 mg PO DAILY 07/10/22 11/24/22 release sulfacetamide sodium-sulfur 8 %-4 1 applic topical DAILY 07/10/22 11/24/22 % topical suspension trazodone 100 mg tablet 200 mg PO HS 07/10/22 11/24/22 triamcinolone acetonide 0.1 % 1 applic topical BID PRN 07/10/22 11/24/22 topical cream ascorbic acid (vitamin C) 250 mg 250 mg PO DAILY 11/24/22 11/24/22 tablet baclofen 10 mg tablet 10 mg PO BID 11/24/22 11/24/22 conjugated estrogens 0.3 mg tablet 0.3 mg PO QDAY 11/24/22 11/24/22 Previous Rx's ?Medication ?Instructions ?Recorded acetaminophen 500 mg tablet 1,000 mg (2 x 500 mg) PO Q8H #90 07/13/22 (Tylenol Extra Strength) tabs hydroxyzine pamoate 25 mg capsule 25 mg PO Q6-8H PRN #30 caps 07/13/22 (Vistaril) potassium chloride 20 mEq 20 meq PO DAILY #14 tabs 08/02/24 tablet,extended release Allergies Allergy/AdvReac Type Severity Reaction Status Date / Time prochlorperazine (From Allergy Intermediate Agitated Verified 08/02/24 14:30 Compazine) amoxicillin Allergy Unknown Anaphylaxis Verified 08/02/24 14:30 adhesive Allergy Anaphylaxis Verified 08/02/24 14:30 clindamycin Allergy itching Verified 08/02/24 14:30 Review of Systems Status of ROS: Reports: 10 or more systems reviewed and unremarkable except as noted in History and below [facility] Medical History Hypokalemia ?E87.6 - Hypokalemia (ICD-10) Tobacco dependence ?F17.200 - Nicotine dependence, unspecified, uncomplicated (ICD-10) Nephrolithiasis ?N20.0 - Calculus of kidney (ICD-10) Asthma ?J45.909 - Unspecified asthma, uncomplicated (ICD-10) Depression with anxiety ?F41.8 - Other specified anxiety disorders (ICD-10) Psoriatic arthritis ?L40.50 - Arthropathic psoriasis, unspecified (ICD-10) Liver cyst ?K76.89 - Other specified diseases of liver (ICD-10) Hot flashes due to menopause ?N95.1 - Menopausal and female climacteric states (ICD-10) Insomnia ?G47.00 - Insomnia, unspecified (ICD-10) Malignant melanoma ?C43.9 - Malignant melanoma of skin, unspecified (ICD-10) GERD (gastroesophageal reflux disease) ?K21.9 - Gastro-esophageal reflux disease without esophagitis (ICD-10) Migraine headache ?G43.909 - Migraine, unspecified, not intractable, without status migrainosus (ICD-10) Surgical History Status post hardware removal (12/02/22) ?Z98.890 - Other specified postprocedural states (ICD-10) S/P ORIF (open reduction internal fixation) fracture (08/04/22) ?Z98.890 - Other specified postprocedural states (ICD-10) ?Z87.81 - Personal history of (healed) traumatic fracture (ICD-10) History of carpal tunnel surgery of left wrist (02/18/04) ?Z98.890 - Other specified postprocedural states (ICD-10) History of carpal tunnel surgery of right wrist (03/10/04) ?Z98.890 - Other specified postprocedural states (ICD-10) H/O laceration repair (11/03/05) ?Z98.890 - Other specified postprocedural states (ICD-10) History of laparoscopic cholecystectomy ?Z90.49 - Acquired absence of other specified parts of digestive tract (ICD- 10) History of hysterectomy for benign disease ?Z90.710 - Acquired absence of both cervix and uterus (ICD-10) History of lymph node dissection of axilla ?Z98.890 - Other specified postprocedural states (ICD-10) H/O melanoma excision ?Z98.890 - Other specified postprocedural states (ICD-10) ?Z85.820 - Personal history of malignant melanoma of skin (ICD-10) H/O lithotripsy ?Z98.890 - Other specified postprocedural states (ICD-10) Status post Fanny fundoplication ?Z98.890 - Other specified postprocedural states (ICD-10) Social History Narrative: Lives in [facility]. She has 2 grown children. , aamir. 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 Since retired, medically secondary to chronic pain. Smokes cigarettes about a 3rd of a pack a day. No drinking. No drug use. Highest level of school completed/degree received: high school graduate Smoking Status: Current every day smoker What tobacco products do you use: cigarettes Years smoked: 20 Do you use any of these nicotine containing products: None Second hand tobacco smoke exposure: No How often do you have a drink containing alcohol: never How often do you have six or more drinks on one occasion: Never AUDIT-C Alcohol total score: 0 Non-prescribed substance use: marijuana (any form) Non-prescribed substance use details: gummies Caffeine: Yes Are you using contraception or practicing any form of control: No service: No Exam Narrative: Exam Narrative: Vital signs reviewed In general, alert, nontoxic Head: Normocephalic, atraumatic. Eyes: Sclera clear. Pupils equal and reactive. ENT: Mucous membranes dry. Neck: Supple without adenopathy. Heart: Regular rate and rhythm without murmur. Lungs: Clear. No increased work of breathing, crackles or wheezes. Abdomen: Soft, nondistended. Some diffuse tenderness without rebound guarding or rigidity. No obvious masses. Extremities: Well perfused, pulses intact. No significant edema. Neurologic: Alert, conversant. Speech fluent, face symmetric. Moves all extremities equally. Skin: Warm, dry well perfused. Affect: Normal. Const: Vital Signs, click to edit/add: Vital Signs - 24 hr 08/02/24 13:15 Temperature 97.2 F L Pulse Rate [Pulse Oximeter] 81 Respiratory Rate 20 Blood Pressure [Le ft Upper Arm] 110/77 Pulse Oximetry 97 Oxygen Delivery Me thod Room Air Course Course ED Course: No obvious findings on exam. She has been taking Zofran at home but ran out, she says that she was previously prescribed that because of her history of Fanny fundoplication. She feels like she would feel better if she could vomit but notes that because of the Fanny she cannot. Her abdominal exam is nonfo ezequiel. Given her reported 50 lb weight loss over the past year am going to order CT scan of the chest abdomen pelvis to look for neoplastic process. Other diagnostic considerations would be gastritis or peptic ulcer disease, delayed gastric emptying, among others. She feels significantly improved after the 1 L of fluid although she has not urinated yet, so giving her a 2nd L of fluid. Her labs are generally pretty unrevealing. She is hypokalemic, this is not a new problem for her. She tells me that she used to be on replacement but no longer is. She has a normal white blood cell count 9.2, hemoglobin of 13.2. She has a very mild eosinophilia of on certain significance. Metabolic panel aside from the potassium is otherwise normal, LFTs are normal, CRP is less than 0.5, lipase is 29. I have given her IV potassium 10 mEq as well as 40 mEq orally. She had a CT scan of her chest abdomen and pelvis which I reviewed. I did not see any obvious findings to explain her weight loss or nausea. Final radiology report was reviewed. Essentially this was read as showing 2 right lower lobe pulmonary nodules measuring up to 8 mm, nonspecific. I am not sure if these are old or new but di d review with her that she should discuss this with primary care as a follow-up CT would be reasonable to document stability given her smoking history. She has moderate submucosal edema of the colon which may represent infectious or inflammatory colitis. She has had some mild diarrhea today. Overall, I do not think this again explains the findings that she came to the ER with of nausea for 2 weeks and weight loss over the past year. I do not think there is a clear indication to treat her with antibiotics. Overall, I think it is reasonable to let her go home. She will need outpatient follow-up with her primary clinic. She already takes Protonix, if symptoms are not improving endoscopy might be indicated. I am sending her home with some Zofran to use for nausea as needed. Return any time for worsening such as significant abdominal pain, high fevers, uncontrolled vomiting or bloody stools. Vital Signs Vital signs: Initial Vital Signs Temperature 97.2 F L 08/02/24 13:15 Temperature Source Temporal Artery Scan 08/02/24 13:15 Pulse Rate 81 08/02/24 13:15 Pulse Rhythm Regular 08/02/24 13:15 Respiratory Rate 20 08/02/24 13:15 Blood Pressure 110/77 08/02/24 13:15 Blood Pressure Mean 88 08/02/24 13:15 Blood Pressure Position Sitting 08/02/24 13:15 Pulse Oximetry 97 08/02/24 13:15 Oxygen Delivery Method Room Air 08/02/24 13:15 Vital Signs Temperature 97.2 F L 08/02/24 13:15 Pulse Rate 81 08/02/24 13:15 Respiratory Rate 20 08/02/24 13:15 Blood Pressure 110/77 08/02/24 13:15 Pulse Oximetry 97 08/02/24 13:15 Oxygen Delivery Method Room Air 08/02/24 13:15 Temperature 97.2 F L 08/02/24 13:15 Pulse Rate 81 08/02/24 13:15 Respiratory Rate 20 08/02/24 13:15 Blood Pressure 110/77 08/02/24 13:15 Pulse Oximetry 97 08/02/24 13:15 Oxygen Delivery Method Room Air 08/02/24 13:15 Medications Administered Medications: Discontinued Medications Generic Name Dose Route Start Last Admin Trade Name Freq PRN Reason Stop Dose Admin Sodium Chloride 1,000 mls @ 1,000 mls/hr 08/02/24 13:45 08/02/24 14:23 0.9 % Sodium Chloride 1000 Ml IV 08/02/24 14:44 1,000 mls/hr .Q1H ROBBY Administration Potassium Chloride 10 meq in 100 mls @ 100 mls/hr 08/02/24 15:07 08/02/24 15:28 Potassium Chloride IVPB 08/02/24 16:06 100 mls/hr ONCE ONE Administration Ondansetron HCl 4 mg 08/02/24 13:42 08/02/24 14:22 Ondansetron 2 Mg/Ml Inj IVP 08/02/24 13:43 4 mg ONCE ONE Administration Potassium Chloride 40 meq 08/02/24 15:07 08/02/24 15:28 Potassium Chloride 10 Meq Capsule Er PO 08/02/24 15:08 40 meq ONCE ONE Administration Medical Decision Making Lab Data Lab results reviewed: Yes I reviewed the patient's lab results Labs: Lab Results 08/02/24 Range/Units 14:10 WBC 9.16 (4.50-11.00) K/uL RBC 4.22 (4.00-5.20) m/uL Hgb 13.2 (12.0-16.0) gm/dL Hct 40.2 (33.0-51.0) % MCV 95 (80-100) fL MCH 31 (26-34) pg MCHC 33 (32-36) gm/dL RDW Coeff of Kathryn 13.0 (11.5-15.5) % Plt Count 350 (140-440) K/uL Neut % (Auto) 62.7 (42.0-72.0) % Lymph % (Auto) 21.7 (20-44) % [place] % (Auto) 8.1 (0.0-11.0) % Eos % (Auto) 7.1 H (0.0-7.0) % Baso % (Auto) 0.3 (0.0-3.0) % Neut # (Auto) 5.74 (1.7-7.0) K/uL Lymph # (Auto) 1.99 (0.90-2.90) K/uL [place] # (Auto) 0.70 (0.00-0.90) K/UL Eos # (Auto) 0.70 H (0.00-0.50) K/uL Baso # (Auto) 0.03 (0.00-0.30) K/uL Abs Immat Gran (auto) 0.01 (0.00-0.30) K/uL Imm/Tot Granulo (auto) 0.1 % Sodium 137 (135-149) mmol/L Potassium 2.8 L* (3.6-5.1) mmol/L Chloride 99 (96-114) mmol/L Carbon Dioxide 32 (20-32) mmol/L Anion Gap 6 L (7-15) mEq/L BUN 8 (7-30) mg/dL Creatinine 0.8 (0.5-1.5) mg/dL Estimated Creat Clear 60.62 Estimated GFR 85 ml/min Glucose 82 (60-115) mg/dL Calcium 9.1 (8.4-10.6) mg/dL Total Bilirubin 0.2 (0.1-1.5) mg/dL Direct Bilirubin 0.2 (0.0-0.5) mg/dL AST 19 (12-35) U/L ALT 14 (4-35) U/L Alkaline Phosphatase 73 (40-150) U/L C-Reactive Protein < 0.5 L (0.5-1.0) mg/dL Total Protein 6.4 (6.0-8.3) g/dL Albumin 3.8 (3.3-5.0) g/dL Lipase 29 (23-300) U/L Imaging Data CT Chest/Ab/Pelvis: Attestation: I have reviewed the pertinent imaging results. Radiologist's impression: Patient: Anne Butler MR#: [id number] : 1965 Acct:[id number] Loc: ED Service Date: 08/02/[address]: Ordering Physician: Zulma Moreno M.D. Date of Service: 08/02/24 Procedure(s): CT chest abdomen pelv w con Accession Number(s): [id number] cc: Zulma Moreno M.D.; Provider,Not a Local~ For Patients: As a result of the Cures Act, medical imaging exams and procedure reports are released immediately into your electronic medical record. You may view this report before your referring provider. If you have questions, please contact your health care provider. Indication: ABD PAIN. WEIGHT LOSS, NAUSEA. HX OF MELANOMA Technique: CT of the chest, abdomen, and pelvis was obtained with 72 mL of Isovue 370 intravenous contrast. Please note that all CT scans at this facility use dose modulation, iterative reconstruction, and/or weight-based dosing when appropriate to reduce radiation dose to as low as reasonably achievable. Comparison: None. Findings: CHEST: Medical devices: None. Thyroid: Normal. Lymph nodes: No supraclavicular, axillary, mediastinal, or hilar lymphadenopathy. Vasculature: Aorta and main pulmonary artery diameters are within normal range. Heart: Normal. No pericardial effusion. Other mediastinal structures: Small calcified lower mediastinal lymph node. Lung parenchyma and pleura: 3 millimeter medial right lower lobe pulmonary nodule (3/56). 8 millimeter medial right lower lobe pulmonary nodule (3/61). Airways: No significant abnormality. Chest wall: Right axillary surgical clips. ABDOMEN/PELVIS: Liver and biliary tree: 1.1 centimeter hepatic cyst (2/129). Additional subcentimeter hypoattenuating lesions are too small to characterize. Suspected focal fat is seen adjacent to the Gallbladder: Status post cholecystectomy. Spleen: Calcified granulomata. Pancreas: Normal. Adrenal glands: Normal. Kidneys and ureters: No hydronephrosis. No obstructing renal calculi. 2.3 centimeter left renal cyst (2/147). Gastrointestinal tract: Moderate submucosal edema of the colon, most prominently affecting the ascending colon. No evidence of acute appendicitis. No evidence of bowel obstruction. Peritoneal cavity: Normal. Bladder: Normal. Pelvic organs: Status post hysterectomy. Vasculature: Minimal calcification. Lymph nodes: Normal. Abdominal wall: Normal. Musculoskeletal: Mild degenerative changes of the bilateral hips. Impression: 1. Medial right lower lobe pulmonary nodules measuring up to 8 millimeter. These are nonspecific. Prior examinations if available would be helpful for comparison. 2. Moderate submucosal edema of the colon, most prominently affecting the ascending colon. Findings may represent infectious or inflammatory colitis. Please note that all CT scans at this facility use dose modulation, iterative reconstruction, and/or weight-based dosing when appropriate to reduce radiation dose to as low as reasonably achievable. Dictated by Cameron Tello MD @ 08/02/2024 3:03:54 PM Discharge Plan Discharge Clinical Impression: Hypokalemia, Dehydration, Nausea Patient Disposition: Home, Self-Care Condition: Improved Instructions: Hypokalemia (ED) Additional Instructions: Potassium replacement as prescribed. Your CT scans today show a couple of small pulmonary nodules, if these cannot be confirmed to be old, you should review with primary care regarding follow-up CT scan to document stability. CT scans do not show anything to account for weight loss or nausea. Please follow-up with primary care for further evaluation. In the meantime, you can use Zofran if needed for nausea. Return any time for severe pain, uncontrolled vomiting, or other new symptoms. Prescriptions: New potassium chloride 20 mEq tablet extended release 20 meq PO DAILY Qty: 14 2RF No Action baclofen 10 mg tablet 10 mg PO BID ascorbic acid (vitamin C) 250 mg tablet 250 mg PO DAILY conjugated estrogens 0.3 mg tablet 0.3 mg PO QDAY bupropion HCl 150 mg tablet sustained-release 12 hr 150 mg PO BID Patient Comments: TAKE ONE TABLET BY MOUTH TWO TIMES A DAY amitriptyline 50 mg tablet 50 mg PO HS Patient Comments: TAKE 1 TABLET (50 MG) BY MOUTH AT BEDTIME. trazodone 100 mg tablet 200 mg PO HS Patient Comments: TAKE 2 TABLETS BY MOUTH AT BEDTIME pantoprazole 40 mg tablet,delayed release (DR/EC) 40 mg PO DAILY Patient Comments: TAKE 1 TABLET (40 MG) BY MOUTH ONCE DAILY BEFORE A MEAL. Premarin 0.45 mg tablet 0.45 mg PO HS Patient Comments: TAKE ONE TABLET BY MOUTH ONCE DAILY Combivent Respimat 20-100 mcg/actuation mist 1 puff INHALATION BID PRN Patient Comments: INHALE 1 PUFF BY MOUTH EVERY 12 HOURS IF NEEDED FOR SHORTNESS OF BREATH. fluticasone propionate 50 mcg/actuation spray,suspension 1 spray INTRANASAL BID Patient Comments: USE 1 SPRAY TO BOTH NOSTRILS TWO TIMES A DAY sulfacetamide sodium-sulfur 8-4 % suspension 1 applic TOPICAL DAILY Patient Comments: WASH FACE ONCE DAILY triamcinolone acetonide 0.1 % cream 1 applic TOPICAL BID PRN Patient Comments: APPLY TO THE AFFECTED AREA TWO TIMES A DAY ondansetron 4 mg tablet,disintegrating 4 mg PO Q8H PRN Patient Comments: PLACE 1 TABLET ON THE TONGUE EVERY 8 HOURS IF NEEDED FOR NAUSEA/VOMITING. epinephrine 0.3 mg/0.3 mL auto-injector 0.3 mg IM PRN PRN Patient Comments: INJECT 0.3MG (0.3ML) INTRAMUSCULARLY NEEDED FOR ALLERGIC REACTION cholecalciferol (vitamin D3) 50 mcg (2,000 unit) capsule 50 mcg PO DAILY metronidazole 0.75 % cream 1 applic TOPICAL DAILY PRN Patient Comments: APPLY TO AFFECTED AREA ON FACE ONCE DAILY hydroxyzine pamoate [Vistaril] 25 mg capsule 25 mg PO Q6-8H PRNQty: 30 0RF Rx Instructions: 1-2 capsules Q6H prn pain acetaminophen [Tylenol Extra Strength] 500 mg tablet 1,000 mg PO Q8H Qty: 90 0RF Follow Up/Referrals: Silva Alberto MD [Referring] - Stand Alone Forms: [facility] Info Instructions
[2024-08-02 14:16] LABS: Basophils Absolute Auto 0.03 K/uL (0.00-0.30); Basophils Percent Auto 0.3 % (0.0-3.0); Eosinophils Percent Auto 7.1 % (0.0-7.0); Hematocrit 40.2 % (33.0-51.0); Hemoglobin* 13.2 gm/dL (12.0-16.0); Immature Granulocytes Abs Auto 0.01 K/uL (0.00-0.30); Immature Granulocytes Pct Auto 0.1 %; Lymphocytes Absolute Auto 1.99 K/uL (0.90-2.90); Lymphocytes Percent Auto 21.7 % (20-44); Mean Corpuscular HGB Conc 33 gm/dL (32-36); Mean Corpuscular Hemoglobin 31 pg (26-34); Mean Corpuscular Volume 95 fL (80-100); Monocytes Percent Auto 8.1 % (0.0-11.0); Neutrophils Absolute Auto 5.74 K/uL (1.7-7.0); Neutrophils Percent Auto 62.7 % (42.0-72.0); Platelet Count* 350 K/uL (140-440); Red Blood Count 4.22 m/uL (4.00-5.20); White Blood Count* 9.16 K/uL (4.50-11.00)
[2024-08-02] MEDS: ONDANSETRON 2 MG/ML inj 4 MG IVP (14:22)
[2024-08-02] MEDS: 0.9 % SODIUM CHLORIDE 1000 ml 1,000 ML IV (14:23)
[2024-08-02 14:42] LABS: Albumin* 3.8 g/dL (3.3-5.0); Chloride* 99 mmol/L (96-114); Sodium* 137 mmol/L (135-149)
[2024-08-02 14:45] LABS: Blood Urea Nitrogen* 8 mg/dL (7-30); Creatinine* 0.8 mg/dL (0.5-1.5); Est. Creatinine Clearance* 60.62; Estimated Glomerular Filt Rate 85 ml/min
[2024-08-02 14:46] LABS: Alanine Aminotransferase* 14 U/L (4-35); Alkaline Phosphatase* 73 U/L (40-150); Anion Gap 6 mEq/L (7-15); Aspartate Amino Transferase* 19 U/L (12-35); Bilirubin Direct* 0.2 mg/dL (0.0-0.5); Bilirubin Total* 0.2 mg/dL (0.1-1.5); Calcium* 9.1 mg/dL (8.4-10.6); Carbon Dioxide* 32 mmol/L (20-32); Glucose* 82 mg/dL (60-115); Lipase* 29 U/L (23-300); Total Protein* 6.4 g/dL (6.0-8.3)
[2024-08-02 14:49] LABS: Potassium* 2.8 mmol/L (3.6-5.1)
[2024-08-02 14:50] LABS: C Reactive Protein* < 0.5 mg/dL (0.5-1.0)
[2024-08-02 15:09] LABS: Slide Review Reflex No
[2024-08-02] MEDS: POTASSIUM CHLORIDE 10 MEQ CAPSULE ER 40 MEQ PO (15:28)
[2024-08-02] MEDS: POTASSIUM CHLORIDE 10 MEQ/100 ML PIGGYBACK 100 MEQ IVPB (15:28)
== END 2024-08-02 17:10 | disposition home or self-care (01) ==
PROVIDERS: Emergency Provider Emergency Medicine
DX: E87.6 Hypokalemia (principal); E86.0 Dehydration; R11.0 Nausea
CPT/HCPCS: 36415; 71260; 74177; 80048; 80076; 83690; 85025; 86140; 96365; 96375; 99284; A9270; J2405; J3480; J7030; Q9967

== ENCOUNTER 2025-01-02 07:00 | Day surgery (SDC) | payer BC, SELFPAY ==
[2025-01-02] VITALS (12 sets, daily range): BP systolic 106–133; BP diastolic 62–89; PULSE 63–76; RESP 16–18; TEMP 36.1–36.2; O2SAT 98–100
--- NOTE | 2025-01-02 09:39 | SUR.OPER ---
TWO FIBULOK SCREWS REMOVED (BY DR. SOLER) FROM THE PATIENT'S LEFT (LATERAL) ANKLE.
[2025-01-02] MEDS: LIDOCAINE 1%-EPI 1:100,000 20 ML INFILTRATI (09:40)
[2025-01-02] MEDS: BUPIVACAINE 0.5 %/EPI 1:200K 30 ML INJECTION (09:40)
--- NOTE | 2025-01-02 10:03 | P.ORPRC_ITS ---
Procedure Note Date of procedure: 01/02/25 Procedure: PREOPERATIVE DIAGNOSIS: Left ankle retained hardware after ankle fracture IM nailing POSTOPERATIVE DIAGNOSIS: Left ankle retained hardware after ankle fracture IM nailing NAME OF OPERATION: Hardware removal deep SURGEON: Matt Higgins MD SENIOR ELECTRICAL ENGINEER: Ofelia Digeo PA-C ANESTHESIA: Local ESTIMATED BLOOD LOSS: 1 mL COMPLICATIONS: None SPECIMENS: None DRAINS: None PREOPERATIVE ANTIBIOTICS: None INDICATIONS: The patient is a 59-year-old who sustained a left ankle fracture and underwent IM nailing. Her distal interlocking screws are symptomatic. Therefore, hardware removal was recommended. The risks, benefits and expected outcomes were discussed in detail. These included but were not limited to: Infection, bleeding, injury to blood vessel or nerve, venous thromboembolism. All questions were answered to their satisfaction. Use of an surgical first assistant was necessary throughout the case for patient positioning and safety, soft tissue retraction and closure. Provider Operated C-arm: C-arm fluoroscopy operated by Matt Higgins MD for hardware removal deep. Ten C-arm spot images were obtained. Fluoroscopy time was 7 seconds. PROCEDURE: The patient was placed supine on the operating room table. The lower extremity was prepped and draped in the usual sterile fashion. Local anesthesia was established with a 50:50 mixture of 1% lidocaine without epinephrine, 0.5% Marcaine without epinephrine. The anterior to posterior screw head is easily palpable. The previously placed incision was utilized. Subcutaneous dissection was bluntly taken to the screw head. The screw was removed intact. The lateral to medial screw was localized with the mini C-arm. The previously placed lateral incision was utilized and extended several mm distally. Blunt dissection was carried to the screw head. The screw was removed intact. The ankle was imaged in the AP, mortise and lateral views with the mini C-arm. The wounds were irrigated with normal saline. The surgical first assistant closed the skin with a 4-0 Monocryl in a subcuticular fashion. The surgical first assistant placed a dry dressing. Sponge and needle counts were correct x 2. The patient tolerated the procedure well. There were no apparent complications. They were carefully transferred to the hospital bed and taken to the postanesthesia care unit in satisfactory condition. PLAN: The patient will be discharged to home. She may weightbear as neha erates, no activity restrictions. She will follow up in the office in 2 weeks for wound check. X-rays will not be needed.
== END 2025-01-02 10:06 | disposition home or self-care (01) ==
LOC: OR 07:03
PROVIDERS: PCP Family Medicine; Visit Provider Orthopaedic Surgery
PROC: (CPT 20680; principal; 2025-01-02 09:00)
DX: T84.84XA Pain due to internal orthopedic prosthetic devices, implants and grafts, initial encounter (principal); G89.29 Other chronic pain; M25.572 Pain in left ankle and joints of left foot
CPT/HCPCS: 20680; 73600; 76000; J3490

== ENCOUNTER 2025-02-27 10:12 | Outpatient (CLI) | payer BC, SELFPAY | END 2025-02-27 10:13 | disposition home or self-care (01) | PROVIDERS: PCP Family Medicine; Visit Provider Family Medicine | DX: L40.50 Arthropathic psoriasis, unspecified (principal); Z13.9 Encounter for screening, unspecified; R53.83 Other fatigue | CPT/HCPCS: 80053; 80061; 84443; 85025 ==